=== PATIENT | male | born 1965 | race Two or more races ===

== ENCOUNTER 2024-01-13 08:37 | Inpatient (IN) | payer SELFPAY ==
[~2024-01-13] VITALS: Ht 167.6 cm; Wt 64.5 kg
[2024-01-13] MEDS: LORazepam 2MG/ML-1ML VIAL IV ONE ×2 (08:49→10:00)
[2024-01-13 09:32] LABS: Basophils # (auto) 0 10 ^3/uL (0-0.2); Basophils % (auto) 0.6 % (0.0-2.0); Eosinophils # (auto) 0.1 10 ^3/uL (0-0.8); Eosinophils % (auto) 1.8 % (0.0-7.0); Hematocrit 40.8 % (41.0-53.0); Hemoglobin 13.8 g/dL (13.5-17.5); Lymphocytes # (auto) 1.6 10 ^3/uL (0.4-5.4); Lymphocytes % (auto) 27.7 % (10.0-50.0); Mean Corpuscular Hemoglobin 31.7 pg (28.0-32.0); Mean Corpuscular Hgb Conc. 33.8 g/dL (32.0-36.0); Mean Corpuscular Volume 93.9 fL (80.0-100.0); Monocytes # (auto) 0.7 10 ^3/uL (0-1.3); Monocytes % (auto) 12.9 % (0.0-12.0); Neutrophils # (auto) 3.2 10 ^3/uL (1.6-8.6); Nucleated Red Blood Cells % 0.1 %; Platelet Count (auto) 125 10^3/uL (140-450); Red Blood Cells 4.34 10^6/uL (4.5-5.90); Red Cell Distribution Width 16.1 % (11.8-14.3); White Blood Cell 5.7 10^3/uL (4.4-10.8)
[2024-01-13 09:43] VITALS: PULSE 94; RESP 22; O2SAT 99
[2024-01-13] MEDS: levETIRAcetam 1000 mg/100ml 100 ML IV ONE (09:59)
[2024-01-13 10:07] LABS: Amphetamine Screen, Urine Neg (NEGATIVE)
[2024-01-13 10:08] LABS: Barbiturate Scree,Urine Neg (NEGATIVE); Benzodiazephine Screen, Urine Pos (NEGATIVE); Cannabinoid Screen, Urine Neg (NEGATIVE); Cocaine Screen, Urine Neg (NEGATIVE); Opiate Scree,Urine Neg (NEGATIVE); Phencyclidine Screen, Urine Neg (NEGATIVE)
[2024-01-13 10:10] LABS: Alanine Aminotransferase 17 U/L (7-40); Albumin 3.8 g/dL (3.2-4.8); Alkaline Phosphatase 125 U/L (46-116); Anion Gap 10 (5-15); Aspartate Aminotransferase 28 U/L (13-40); BUN/Creatinine Ratio 6.4 (10.0-20.0); Blood Urea Nitrogen 6 mg/dL (9-23); Calcium 9.4 mg/dL (8.7-10.4); Carbon Dioxide 20 mmol/L (20-31); Chloride 115 mmol/L (98-107); Glucose 117 mg/dL (74-106); Magnesium 2.1 mg/dL (1.6-2.6); Potassium 3.5 mmol/L (3.5-5.1); Sodium 145 mmol/L (136-145); Total Protein 6.9 g/dL (5.7-8.2)
[2024-01-13 10:16] LABS: Urine Amorphous Crystal FEW /hpf (None Seen); Urine Bacteria FEW /hpf (None Seen); Urine Blood Negative /uL (Negative); Urine Color Light-Yellow (Yellow); Urine Hyaline Cast FEW /lpf (0 - 2); Urine Protein, UAD TRACE (Negative); Urine Specific Gravity 1.011 (1.001-1.035); Urine Urobilinogen Normal (Negative); Urine WBC 1 /hpf (0 - 3); Urine pH 7.5 (5.0-9.0)
[2024-01-13 10:17] LABS: Urine Clarity Hazy (Clear)
[2024-01-13 18:21] VITALS: BP 125/74; PULSE 96; RESP 20; TEMP 100.2; O2SAT 96
[2024-01-13 20:00] VITALS: PULSE 90
[2024-01-13 20:30] VITALS: PULSE 99; RESP 20; O2SAT 96
[2024-01-13 22:00] VITALS: BP 123/72; PULSE 99; RESP 18; TEMP 101.4; O2SAT 94
[2024-01-13] MEDS: SODIUM CHLOR 0.9% PF (SALINE LOCK) 10ML VIAL/SYR IV SCH (23:11)
[2024-01-13] MEDS: levETIRAcetam 500 mg/100ml 100 ML IV SCH (23:11)
[2024-01-14] VITALS (7 sets, daily range): BP systolic 107–112; BP diastolic 52–63; PULSE 69–85; RESP 18–20; TEMP 98.9–101.2; O2SAT 97–98
[2024-01-14] MEDS: ACETAMINOPHEN 650 MG RECT SUPP PR PRN (05:40)
[2024-01-14 06:36] LABS: Basophils # (auto) 0 10 ^3/uL (0-0.2); Basophils % (auto) 0.4 % (0.0-2.0); Eosinophils # (auto) 0 10 ^3/uL (0-0.8); Hematocrit 36.7 % (41.0-53.0); Hemoglobin 12.7 g/dL (13.5-17.5); Lymphocytes % (auto) 27.8 % (10.0-50.0); Mean Corpuscular Hemoglobin 31.5 pg (28.0-32.0); Mean Corpuscular Hgb Conc. 34.7 g/dL (32.0-36.0); Mean Corpuscular Volume 90.9 fL (80.0-100.0); Monocytes # (auto) 0.7 10 ^3/uL (0-1.3); Monocytes % (auto) 10.3 % (0.0-12.0); Neutrophils # (auto) 4.4 10 ^3/uL (1.6-8.6); Neutrophils % (auto) 61.5 % (37.0-80.0); Nucleated Red Blood Cells % 0.1 %; Platelet Count (auto) 123 10^3/uL (140-450); Red Blood Cells 4.04 10^6/uL (4.5-5.90); Red Cell Distribution Width 15.5 % (11.8-14.3); White Blood Cell 7.1 10^3/uL (4.4-10.8)
[2024-01-14 06:54] LABS: Alanine Aminotransferase 12 U/L (7-40); Albumin 3.8 g/dL (3.2-4.8); Alkaline Phosphatase 112 U/L (46-116); Anion Gap 10 (5-15); Aspartate Aminotransferase 30 U/L (13-40); Bilirubin, Total 1.8 mg/dL (0.2-1.0); Blood Urea Nitrogen 12 mg/dL (9-23); Calcium 9.4 mg/dL (8.7-10.4); Carbon Dioxide 21 mmol/L (20-31); Chloride 112 mmol/L (98-107); Glucose 128 mg/dL (74-106); Potassium 3.5 mmol/L (3.5-5.1); Sodium 143 mmol/L (136-145); Total Protein 6.8 g/dL (5.7-8.2)
[2024-01-14] MEDS: LORazepam 2MG/ML-1ML VIAL IV PRN (08:22)
[2024-01-14] MEDS: ENOXAPARIN SOD 40 MG/0.4 ML SYRINGE SC SCH (09:27)
[2024-01-14] MEDS: FUROSEMIDE 40 MG/4 ML VIAL IV ONE (11:58)
[2024-01-14] MEDS ORDERED: HALOPERIDOL LACTATE 5 MG/ML INJ VIAL IV PRN (16:45)
[2024-01-14 21:01] LABS: COVID19 ANTIGEN SOFIA FIA NEGATIVE (NEGATIVE); Rapid Influenza A Negative (Negative); Rapid Influenza B Negative (Negative)
[2024-01-14] MEDS: FOLIC ACID 1 MG in D5W 5% 50 ML INJ ONE (22:30)
[2024-01-14] MEDS: THIAMINE 100mg/ml INJ (200mg/2ml VIAL) IM ONE (23:09)
[2024-01-14] MEDS: THIAMINE 100mg/ml INJ (200mg/2ml VIAL) IV ONE (23:10)
[2024-01-15] VITALS (9 sets, daily range): BP systolic 94–124; BP diastolic 54–73; PULSE 67–85; RESP 18–20; TEMP 97.9–99.1; O2SAT 95–98
[2024-01-15 07:24] LABS: Basophils # (auto) 0 10 ^3/uL (0-0.2); Basophils % (auto) 0.4 % (0.0-2.0); Eosinophils # (auto) 0.1 10 ^3/uL (0-0.8); Eosinophils % (auto) 1.3 % (0.0-7.0); Hematocrit 40.9 % (41.0-53.0); Hemoglobin 14.3 g/dL (13.5-17.5); Lymphocytes # (auto) 2.3 10 ^3/uL (0.4-5.4); Mean Corpuscular Hemoglobin 31.9 pg (28.0-32.0); Mean Corpuscular Hgb Conc. 35.1 g/dL (32.0-36.0); Mean Corpuscular Volume 91.1 fL (80.0-100.0); Monocytes # (auto) 0.9 10 ^3/uL (0-1.3); Monocytes % (auto) 9.2 % (0.0-12.0); Neutrophils # (auto) 6.1 10 ^3/uL (1.6-8.6); Neutrophils % (auto) 65.1 % (37.0-80.0); Nucleated Red Blood Cells % 0.1 %; Platelet Count (auto) 124 10^3/uL (140-450); Red Blood Cells 4.49 10^6/uL (4.5-5.90); Red Cell Distribution Width 15.7 % (11.8-14.3); White Blood Cell 9.4 10^3/uL (4.4-10.8)
[2024-01-15 07:37] LABS: Alanine Aminotransferase 17 U/L (7-40); Alkaline Phosphatase 120 U/L (46-116); Anion Gap 10 (5-15); BUN/Creatinine Ratio 21.6 (10.0-20.0); Calcium 10.1 mg/dL (8.7-10.4); Carbon Dioxide 23 mmol/L (20-31); Chloride 112 mmol/L (98-107); Glucose 113 mg/dL (74-106); Potassium 3.5 mmol/L (3.5-5.1); Sodium 145 mmol/L (136-145)
[2024-01-15 07:38] LABS: Albumin 4.2 g/dL (3.2-4.8); Aspartate Aminotransferase 33 U/L (13-40)
[2024-01-15 07:39] LABS: Bilirubin, Total 2.4 mg/dL (0.2-1.0); Total Protein 7.5 g/dL (5.7-8.2)
[2024-01-15 07:46] LABS: Blood Urea Nitrogen 25 mg/dL (9-23)
[2024-01-15] MEDS: FOLIC ACID 1 MG in D5W 5% 50 ML INJ SCH (10:00)
[2024-01-15] MEDS: THIAMINE 100mg/ml INJ (200mg/2ml VIAL) IV SCH (10:00)
[2024-01-15 10:44] LABS: INR 1.16 (0.9-1.15); Partial Thromboplastin Time 25.3 SEC (24.5-34.5); Prothrombin Time 12.2 sec (9.3-11.8)
[2024-01-15] MEDS: HYDROmorphone HCL 2 MG/ML VL/or syr IV PRN (13:12)
[2024-01-15] MEDS: LACTULOSE 20Gm/30ML SOLN PO SCH (14:00)
[2024-01-15 20:34] LABS: Basophils # (auto) 0 10 ^3/uL (0-0.2); Basophils % (auto) 0.5 % (0.0-2.0); Eosinophils # (auto) 0.2 10 ^3/uL (0-0.8); Hematocrit 38.3 % (41.0-53.0); Hemoglobin 13.2 g/dL (13.5-17.5); Lymphocytes # (auto) 2.5 10 ^3/uL (0.4-5.4); Lymphocytes % (auto) 33.2 % (10.0-50.0); Mean Corpuscular Hemoglobin 31.4 pg (28.0-32.0); Mean Corpuscular Hgb Conc. 34.4 g/dL (32.0-36.0); Mean Corpuscular Volume 91.4 fL (80.0-100.0); Monocytes # (auto) 0.9 10 ^3/uL (0-1.3); Monocytes % (auto) 11.8 % (0.0-12.0); Neutrophils # (auto) 3.8 10 ^3/uL (1.6-8.6); Neutrophils % (auto) 51.5 % (37.0-80.0); Nucleated Red Blood Cells % 0.1 %; Platelet Count (auto) 122 10^3/uL (140-450); Red Blood Cells 4.19 10^6/uL (4.5-5.90); Red Cell Distribution Width 15.7 % (11.8-14.3); White Blood Cell 7.4 10^3/uL (4.4-10.8)
[2024-01-16] VITALS (8 sets, daily range): BP systolic 108–130; BP diastolic 65–72; PULSE 67–87; RESP 16–18; TEMP 98.1–99; O2SAT 96–97
[2024-01-16 07:12] LABS: Basophils # (auto) 0 10 ^3/uL (0-0.2); Basophils % (auto) 0.6 % (0.0-2.0); Eosinophils # (auto) 0.2 10 ^3/uL (0-0.8); Eosinophils % (auto) 2.5 % (0.0-7.0); Hematocrit 40.5 % (41.0-53.0); Hemoglobin 13.9 g/dL (13.5-17.5); Lymphocytes # (auto) 2.6 10 ^3/uL (0.4-5.4); Lymphocytes % (auto) 40.9 % (10.0-50.0); Mean Corpuscular Hemoglobin 31.5 pg (28.0-32.0); Mean Corpuscular Hgb Conc. 34.4 g/dL (32.0-36.0); Mean Corpuscular Volume 91.3 fL (80.0-100.0); Monocytes # (auto) 0.9 10 ^3/uL (0-1.3); Monocytes % (auto) 13.2 % (0.0-12.0); Neutrophils # (auto) 2.8 10 ^3/uL (1.6-8.6); Neutrophils % (auto) 42.8 % (37.0-80.0); Nucleated Red Blood Cells % 0.1 %; Platelet Count (auto) 130 10^3/uL (140-450); Red Blood Cells 4.43 10^6/uL (4.5-5.90); Red Cell Distribution Width 15.6 % (11.8-14.3); White Blood Cell 6.5 10^3/uL (4.4-10.8)
[2024-01-16 07:40] LABS: Alanine Aminotransferase 13 U/L (7-40); Albumin 4.3 g/dL (3.2-4.8); Alkaline Phosphatase 111 U/L (46-116); Anion Gap 14 (5-15); Aspartate Aminotransferase 25 U/L (13-40); BUN/Creatinine Ratio 21.9 (10.0-20.0); Bilirubin, Total 1.6 mg/dL (0.2-1.0); Blood Urea Nitrogen 25 mg/dL (9-23); Calcium 9.8 mg/dL (8.7-10.4); Carbon Dioxide 22 mmol/L (20-31); Chloride 116 mmol/L (98-107); Glucose 105 mg/dL (74-106); Potassium 3.3 mmol/L (3.5-5.1); Total Protein 7.6 g/dL (5.7-8.2)
[2024-01-16 07:42] LABS: Sodium 152 mmol/L (136-145)
[2024-01-16] MEDS: NYSTATIN (MOUTH-THROAT) 500,000 UNITS/5 ML SUSP MT SCH (11:42)
[2024-01-16] MEDS: SODIUM CHLORIDE 0.9% 1,000 ML IV ONE (12:15)
[2024-01-16] MEDS: NEOMYCIN-POLYM-HC 1% OTIC(EAR) SOLN 10ML EACH EAR ONE (12:54)
[2024-01-16] MEDS: POTASSIUM CHL 20MEQ/100ML 100 ML IV ONE (12:54)
[2024-01-16] MEDS: D5W/SOD CHL 0.45% 1,000 ML IV SCH (17:44)
[2024-01-16] MEDS: NEOMYCIN-POLYM-HC 1% OTIC(EAR) SOLN 10ML EACH EAR SCH (17:45)
[2024-01-17] VITALS (7 sets, daily range): BP systolic 105–122; BP diastolic 63–74; PULSE 49–77; RESP 16–20; TEMP 98–98.5; O2SAT 94–100
[2024-01-17 07:17] LABS: Basophils # (auto) 0 10 ^3/uL (0-0.2); Basophils % (auto) 0.7 % (0.0-2.0); Eosinophils # (auto) 0.3 10 ^3/uL (0-0.8); Eosinophils % (auto) 4.2 % (0.0-7.0); Hematocrit 37.2 % (41.0-53.0); Hemoglobin 12.7 g/dL (13.5-17.5); Lymphocytes # (auto) 2.9 10 ^3/uL (0.4-5.4); Lymphocytes % (auto) 42.3 % (10.0-50.0); Mean Corpuscular Hemoglobin 31.1 pg (28.0-32.0); Mean Corpuscular Hgb Conc. 34.1 g/dL (32.0-36.0); Mean Corpuscular Volume 91.2 fL (80.0-100.0); Monocytes # (auto) 0.9 10 ^3/uL (0-1.3); Monocytes % (auto) 13.9 % (0.0-12.0); Neutrophils # (auto) 2.7 10 ^3/uL (1.6-8.6); Neutrophils % (auto) 38.9 % (37.0-80.0); Nucleated Red Blood Cells % 0.3 %; Platelet Count (auto) 118 10^3/uL (140-450); Red Blood Cells 4.08 10^6/uL (4.5-5.90); Red Cell Distribution Width 15.5 % (11.8-14.3); White Blood Cell 6.8 10^3/uL (4.4-10.8)
[2024-01-17 07:33] LABS: Alanine Aminotransferase 18 U/L (7-40); Albumin 3.8 g/dL (3.2-4.8); Alkaline Phosphatase 109 U/L (46-116); Anion Gap 12 (5-15); Aspartate Aminotransferase 40 U/L (13-40); Bilirubin, Total 1.9 mg/dL (0.2-1.0); Blood Urea Nitrogen 26 mg/dL (9-23); Calcium 9.3 mg/dL (8.7-10.4); Carbon Dioxide 22 mmol/L (20-31); Chloride 113 mmol/L (98-107); Glucose 87 mg/dL (74-106); Potassium 3.2 mmol/L (3.5-5.1); Sodium 147 mmol/L (136-145); Total Protein 6.8 g/dL (5.7-8.2)
[2024-01-17 08:06] LABS: RPR Non Reactive (Non Reactive)
[2024-01-17] MEDS: POTASSIUM EFFERVESENT TAB 25 MEQ PO ONE (10:43)
[2024-01-17] MEDS: ONDANSETRON HCL 4 MG/2 ML VIAL IV PRN (17:12)
[2024-01-17] MEDS: AMOXICILLIN/CLAVUL 875 MG TAB PO SCH (22:04)
[2024-01-18] VITALS (8 sets, daily range): BP systolic 95–110; BP diastolic 52–63; PULSE 67–85; RESP 16–20; TEMP 98.5–99.2; O2SAT 92–99
[2024-01-18 09:33] LABS: Basophils # (auto) 0 10 ^3/uL (0-0.2); Basophils % (auto) 0.3 % (0.0-2.0); Eosinophils # (auto) 0.2 10 ^3/uL (0-0.8); Hematocrit 35.5 % (41.0-53.0); Lymphocytes % (auto) 20.2 % (10.0-50.0); Mean Corpuscular Hemoglobin 31.1 pg (28.0-32.0); Mean Corpuscular Hgb Conc. 33.7 g/dL (32.0-36.0); Mean Corpuscular Volume 92.1 fL (80.0-100.0); Monocytes # (auto) 0.5 10 ^3/uL (0-1.3); Neutrophils # (auto) 3.4 10 ^3/uL (1.6-8.6); Neutrophils % (auto) 65.5 % (37.0-80.0); Nucleated Red Blood Cells % 0.1 %; Platelet Count (auto) 106 10^3/uL (140-450); Red Blood Cells 3.85 10^6/uL (4.5-5.90); Red Cell Distribution Width 15.3 % (11.8-14.3); White Blood Cell 5.2 10^3/uL (4.4-10.8)
[2024-01-18 09:55] LABS: Alanine Aminotransferase 11 U/L (7-40); Alkaline Phosphatase 91 U/L (46-116); Anion Gap 8 (5-15); BUN/Creatinine Ratio 16.7 (10.0-20.0); Blood Urea Nitrogen 15 mg/dL (9-23); Calcium 8.6 mg/dL (8.7-10.4); Carbon Dioxide 23 mmol/L (20-31); Chloride 112 mmol/L (98-107); Glucose 111 mg/dL (74-106); Potassium 3.4 mmol/L (3.5-5.1); Sodium 143 mmol/L (136-145)
[2024-01-18 09:56] LABS: Albumin 3.3 g/dL (3.2-4.8); Aspartate Aminotransferase 24 U/L (13-40); Total Protein 5.9 g/dL (5.7-8.2)
[2024-01-18] MEDS: POTASSIUM EFFERVESENT TAB 25 MEQ PO ONE (14:21)
[2024-01-18 20:27] LABS: Calcium 9.4 mg/dL (8.7-10.4); Chloride 110 mmol/L (98-107); Potassium 4.2 mmol/L (3.5-5.1); Sodium 139 mmol/L (136-145)
[2024-01-18 20:28] LABS: Anion Gap 8 (5-15); Carbon Dioxide 21 mmol/L (20-31)
[2024-01-18 20:33] LABS: BUN/Creatinine Ratio 11.7 (10.0-20.0); Blood Urea Nitrogen 11 mg/dL (9-23); Glucose 115 mg/dL (74-106)
[2024-01-19 01:00] VITALS: BP 92/46; PULSE 63; RESP 16; TEMP 98.1; O2SAT 97
[2024-01-19 05:00] VITALS: BP 115/63; PULSE 63; RESP 16; TEMP 97.6; O2SAT 97
[2024-01-19 09:00] VITALS: BP 102/58; PULSE 66; RESP 14; TEMP 97.4; O2SAT 99
[2024-01-19 09:06] LABS: Vitamin D 25-Hydroxy 29 ng/mL (.); Vitamin D-2 25-Hydroxy <1.0 ng/mL (.); Vitamin D-3 25-Hydroxy 29 ng/mL (.)
[2024-01-19 13:36] VITALS: BP 102/60; PULSE 66; RESP 18; TEMP 98; O2SAT 100
[2024-01-19 16:51] VITALS: BP 119/64; PULSE 69; RESP 18; TEMP 97.9; O2SAT 99
[2024-01-19 21:00] VITALS: BP 92/48; PULSE 65; RESP 18; TEMP 97.6; O2SAT 94
[2024-01-20 01:00] VITALS: BP 100/53; PULSE 73; RESP 17; TEMP 97.7; O2SAT 98
[2024-01-20 05:00] VITALS: BP 116/60; PULSE 64; RESP 17; TEMP 98.5; O2SAT 96
[2024-01-20 09:00] VITALS: BP 110/64; PULSE 76; RESP 14; TEMP 97.9; O2SAT 98
[2024-01-20 10:20] LABS: Chloride 114 mmol/L (98-107); Sodium 144 mmol/L (136-145)
[2024-01-20 10:21] LABS: Anion Gap 8 (5-15); Calcium 9.1 mg/dL (8.7-10.4); Carbon Dioxide 22 mmol/L (20-31)
[2024-01-20 10:26] LABS: BUN/Creatinine Ratio 9.4 (10.0-20.0); Blood Urea Nitrogen 9 mg/dL (9-23); Glucose 177 mg/dL (74-106)
[2024-01-20 13:00] VITALS: BP 103/61; PULSE 64; RESP 20; TEMP 98.1; O2SAT 99
[2024-01-20] MEDS ORDERED: COROSUS EACH EAR (13:48)
[2024-01-20] MEDS ORDERED: AUG875T PO (13:48)
[2024-01-20 15:02] VITALS: BP 111/52; TEMP 36.7
[2024-01-20 16:31] VITALS: BP 130/73; PULSE 85; RESP 16; TEMP 98.4; O2SAT 97
[2024-01-26 09:46] LABS: Hepatitis B Surface Antigen Negative (Negative)
[2024-01-26 10:07] LABS: Hepatitis B Core IgM Negative
[2024-01-26 10:08] LABS: Hepatitis A Ab IgM Negative; Hepatitis C Antibody Negative (Negative)
== END 2024-01-20 20:40 | DRG 101 ==
LOC: EDBD 08:37 → ER 08:37 → TELE 15:27 → EDBD 15:27 → TELE-WESTW 18:12 → WEST WING 01-16 12:33
PROVIDERS: ADMIT Internal Medicine; ATTEND Internal Medicine
DX: G40.901 Epilepsy, unspecified, not intractable, with status epilepticus (principal); B37.0 Candidal stomatitis; E87.0 Hyperosmolality and hypernatremia; E72.20 Disorder of urea cycle metabolism, unspecified; N39.0 Urinary tract infection, site not specified; Z20.822 Contact with and (suspected) exposure to COVID-19; G83.84 Todd's paralysis (postepileptic); D69.6 Thrombocytopenia, unspecified; M47.812 Spondylosis without myelopathy or radiculopathy, cervical region; H60.93 Unspecified otitis externa, bilateral; H70.92 Unspecified mastoiditis, left ear; K76.82 Hepatic encephalopathy; F04 Amnestic disorder due to known physiological condition; E87.6 Hypokalemia; K74.60 Unspecified cirrhosis of liver; F10.20 Alcohol dependence, uncomplicated; Y90.9 Presence of alcohol in blood, level not specified; Z79.899 Other long term (current) drug therapy
CPT/HCPCS: 36415; 36600; 70450; 71045; 72125; 76705; 76775; 80048; 80053; 80074; 80307; 80320; 81001; 82140; 82306; 82607; 82805; 83036; 83735; 84295; 84443; 84484; 85025; 85610; 85730; 86592; 86703; 87426; 87804; 92610; 93005; 93306; 93971; 95819; 97110; 97116; 97163; 97530; 99291; G0378; J2405; J3480; J7060

== ENCOUNTER 2024-03-14 17:20 | Emergency (ER) | payer OTHER ==
[~2024-03-14] VITALS: Ht 167.6 cm; Wt 67.8 kg
[~2024-03-14 17:20] MED LIST: AUG875T PO; COROSUS EACH EAR
[2024-03-14 18:19] VITALS: BP 124/72; PULSE 84; RESP 16; TEMP 98.2; O2SAT 98
== END 2024-03-14 19:14 | disposition left against medical advice (07) ==
LOC: ER 17:20
DX: H92.02 Otalgia, left ear (principal); R20.2 Paresthesia of skin; Z53.21 Procedure and treatment not carried out due to patient leaving prior to being seen by health care provider

== ENCOUNTER 2024-03-15 02:38 | Emergency (ER) | payer SELFPAY ==
[~2024-03-15] VITALS: Ht 162.6 cm; Wt 65.0 kg
[2024-03-15 03:22] LABS: Basophils # (auto) 0.1 10 ^3/uL (0-0.2); Eosinophils # (auto) 0.3 10 ^3/uL (0-0.8); Eosinophils % (auto) 3.5 % (0.0-7.0); Hematocrit 35.6 % (41.0-53.0); Hemoglobin 11.7 g/dL (13.5-17.5); Lymphocytes # (auto) 3.4 10 ^3/uL (0.4-5.4); Lymphocytes % (auto) 43.5 % (10.0-50.0); Mean Corpuscular Hemoglobin 28.1 pg (28.0-32.0); Mean Corpuscular Hgb Conc. 32.8 g/dL (32.0-36.0); Mean Corpuscular Volume 85.8 fL (80.0-100.0); Monocytes # (auto) 1.1 10 ^3/uL (0-1.3); Monocytes % (auto) 13.4 % (0.0-12.0); Neutrophils # (auto) 3.1 10 ^3/uL (1.6-8.6); Neutrophils % (auto) 38.6 % (37.0-80.0); Nucleated Red Blood Cells % 0.1 %; Platelet Count (auto) 185 10^3/uL (140-450); Red Blood Cells 4.15 10^6/uL (4.5-5.90); Red Cell Distribution Width 15.8 % (11.8-14.3); White Blood Cell 7.9 10^3/uL (4.4-10.8)
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
[2024-03-15 03:39] LABS: Alanine Aminotransferase 11 U/L (7-40); Albumin 4.2 g/dL (3.2-4.8); Anion Gap 6 (5-15); Aspartate Aminotransferase 20 U/L (13-40); Blood Urea Nitrogen 10 mg/dL (9-23); Carbon Dioxide 26 mmol/L (20-31); Potassium 3.7 mmol/L (3.5-5.1); Sodium 142 mmol/L (136-145)
[2024-03-15 03:40] LABS: Total Protein 7.5 g/dL (5.7-8.2)
[2024-03-15 03:49] LABS: Chloride 110 mmol/L (98-107); Glucose 115 mg/dL (74-106)
[2024-03-15 03:50] LABS: Alkaline Phosphatase 124 U/L (46-116); Blood Alcohol < 3.0 mg/dL (<10)
--- NOTE | 2024-03-15 04:07 | DVH ---
Examination: HWOCT CLINICAL INDICATION: head injury / ALOC COMPARISON: None. CONTRAST USED: None. TECHNIQUE: The examination was performed obtaining 5 mm slices without contrast. CT scan was done acc ording to ALARA (As Low as Reasonably Achievable). Multiplanar reconstructions were obtained. FINDINGS: SUPRATENTORIAL BRAIN: Cerebral Hemispheres: There is no midline shift or mass effect, intra or extra-axial fluid collection s or hemorrhage. Prominent sulcal-gyral pattern and cisternal spaces in both cerebral hemispheres sug gestive of cerebral atrophy, likely age-related. Dural calcifications noted. Periventricular White Matter/Basal Ganglia: No abnormal areas of altered attenuation within the periv entricular white matter or basal ganglia. POSTERIOR FOSSA: The brainstem is normal and the visualized cerebellar hemispheres are unremarkable. VENTRICULAR SYSTEM: Slightly asymmetrical both lateral ventricles with the right one being prominent, a normal variation. There is no evidence of hydrocephalus or transependymal flow of cerebrospinal fl uid. SKULL BASE AND PARASELLAR REGION: The skull base is normal with no parasellar masses or abnormalities identified. CALVARIUM AND SCALP REGION: Questionable fracture of nasal bone on the right side. Advised further ev aluation with CT face / nasal bone without contrast with thin sections bone reformats. Hypo to isoden se material noted in left mastoid air cells and left middle ear cavity, suggestive of otomastoiditis. PARANASAL SINUSES: No significant inflammatory changes are identified in the visualized paranasal sin uses. IMPRESSION: 1. No obvious intracranial injury or skull vault fracture. 2. Questionable fracture of nasal bone on the right side. Advised further evaluation with CT face / nasal bone without contrast with thin sections bone reformats. 3. Cerebral and cerebellar atrophy, likely age-related. 4. Chronic and/or ancillary findings as described above. Electronically Signed 03/15/2024 04:06 Ilsa Elder
[2024-03-15 04:52] VITALS: BP 121/71; PULSE 80; RESP 18; TEMP 98.6; O2SAT 98
== END 2024-03-15 04:52 | disposition home or self-care (01) ==
LOC: ER 02:38
DX: S00.03XA Contusion of scalp, initial encounter (principal); Y04.2XXA Assault by strike against or bumped into by another person, initial encounter; Y93.89 Activity, other specified; Y92.89 Other specified places as the place of occurrence of the external cause; Y99.8 Other external cause status
CPT/HCPCS: 36415; 70450; 80053; 80320; 83735; 85025

== ENCOUNTER 2024-03-19 17:03 | Emergency (ER) | payer SELFPAY ==
[~2024-03-19] VITALS: Ht 160 cm; Wt 69.0 kg
[2024-03-19 19:00] VITALS: BP 132/72; PULSE 72; RESP 20; TEMP 98.5; O2SAT 96
[2024-03-19] MEDS ORDERED: ACET500T58 PO (20:08)
[2024-03-19] MEDS ORDERED: AMOX875T4 PO (20:08)
[2024-03-19] MEDS ORDERED: CIPR1SUS8 LEFT EAR (20:08)
--- NOTE | 2024-03-19 20:08 | ED.PDOC ---
Eye-HPI HPI Comments 59-YEAR-OLD MALE PRESENTS TO ER WITH COMPLAINTS OF LEFT EARACHE X2 DAYS. PATIENT REPORTS HE HAS BEEN EXPERIENCING LEFT-SIDED EARACHE AND SORE THROAT PAIN X2 DAYS. HE RATES HIS CURRENT PAIN A 7/10 TO LEFT EAR AND THROAT, DENYING ANY OTHER PAIN. DENIES USE OF MEDICATIONS FOR CURRENT SYMPTOMS. PATIENT PRESENTS TO ER AMBULATORY ON ARRIVAL, WITH STEADY GAIT, IN NO DISTRESS. DENIES HEADACHE, EAR DRAINAGE, NAUSEA/VOMITING, DIZZINESS, DIFFICULTY SWALLOWING, SHORTNESS OF BREATH OR ANY FURTHER SYMPTOMS/COMPLAINTS Chief Complaint: Sore Throat Time Seen by MD: 18:09 Primary Care Provider: YASIR Reviewed Notes: Nurses Notes, Medications, Allergies Allergies: Coded Allergies: NO KNOWN ALLERGIES (Unverified , 03/19/24) Home Meds Active Scripts Ciprofloxacin-Dexamethasone (Ciprofloxacin/Dexamethaso 0.3-0.1 %) 1 Stacie Stacie, 4 DROP LEFT EAR BID for 7 Days, #1 BOTTLE 0 Refills Prov:JAMSHID SILVA 03/19/24 Amoxicillin & Pot Clavulanate (Amoxicillin/Potassium Cla) 875 Mg Tab, 1 TAB PO BID for 7 Days, #14 TAB 0 Refills Prov:JAMSHID SILVA 03/19/24 Acetaminophen (Acetaminophen) 500 Mg Tab, 500 MG PO Q4HPRN, #30 TAB 0 Refills Prov:JAMSHID SILVA 03/19/24 Amoxicillin & Pot Clavulanate (AUGMENTIN TABLET) 875 Mg Tb, 875 MG PO BID for 3 Days, #6 TAB Prov:DESIREE PEREZ RESIDENT 01/20/24 [id number]-[id number]-Iz (Otic) (Cortisporin Otic Susp) [address], 4 DROP EACH EAR TID for 5 Days, #10 ML Prov:DESIREE PEREZ RESIDENT 01/20/24 Information Source: Patient Mode of Arrival: Ambulatory Past Medical History PAST MEDICAL HISTORY: Seizures Surgical History: Unknown Family History Family History: Unknown Social History Smoker: Non-Smoker Alcohol: Denies ETOH Use Drugs: Denies Drug Use Lives In: Home Constitutional: denies: chills, diaphoresis, fatigue, fever, malaise, sweats, weakness, others EENTM: reports: others (As stated in HPI) Respiratory: denies: cough, hemoptysis, orthopnea, SOB at rest, shortness of breath, SOB with excertion, stridor, wheezing, others Cardiovascular: denies: chest pain, dizzy spells, diaphoresis, Dyspnea on exertion, edema, irregular heart beat, left arm pain, lightheadedness, palpitations, PND, syncope, others Gastrointestinal: denies: abdomen distended, abdominal pain, blood streaked bowels, constipated, diarrhea, dysphagia, difficulty swallowing, hematemesis, melena, nausea, poor appetite, poor fluid intake, rectal bleeding, rectal pain, vomiting, others Genitourinary: denies: burning, dysuria, flank pain, frequency, hematuria, incontinence, penile discharge, penile sore, pain, testicle pain, testicle swelling, urgency, others Neurological: denies: dizziness, fainting, headache, left sided numbness, left sided weakness, numbness, paresthesia, pre-existing deficit, right sided numbness, right sided weakness, seizure, speech problems, tingling, tremors, weakness, others Musculoskeletal: denies: back pain, gout, joint pain, joint swelling, muscle pain, muscle stiffness, neck pain, others Integumetry: denies: bruises, change in color, change in hair/nails, dryness, laceration, lesions, lumps, rash, wounds, others Allergic/Immunocompromised: denies: Difficulty Healing, Frequent Infections, Hives, Itching, others Hematologic/Lymphatic: denies: anemia, blood clots, easy bleeding, easy bruising, swollen glands, others Endocrine: denies: excessive hunger, excessive sweating, excessive thirst, excessive urination, flushing, intolerance to cold, intolerance to heat, une xplained weight gain, unexplained weight loss, others Psychiatric: denies: anxiety, bipolar disorder, depression, hopeless, panic disorder, schizophrenia, sleepless, suicidal, others Physical Exam General Appearance: No Apparent Distress HEENT: PERRL/EOMI, Pharynx Normal, Other (Mild erythema and minimal yellow drainage noted to left middle ear canal, unable to visualize left TM due to purulent drainage. No skin changes to left ear appreciated, no TTP to left mastoid process or left tragus noted. Ear exam on right-normal) Neck: Full Range of Motion, Non-Tender, Normal Respiratory: Chest Non-Tender, Lungs Clear, No Accessory Muscle Use, No Respiratory Distress, Normal Breath Sounds Cardiovascular: No Murmur, No Gallop, Regular Rate/Rhythm Breast Exam: Deferred Gastrointestinal: NOT DONE Genitalia: Deferred Pelvic: Deferred Rectal: Deferred Extremities: Normal capillary refill, Normal range of motion Neurologic: Alert, supervisor firearms II-XII nml as Tested, No Motor Deficits, Normal Affect, Normal Mood, No Sensory Deficits Cerebellar Function: Normal Reflexes: Normal Skin: Dry, Normal Color, Warm Lymphatic: No Adenopathy Was a procedure done? Was a procedure done?: No Sedation Sedation?: No EENT DIFF Eye: N/A Ear: Cerumen Impaction, Otitis Media, Perforation, Pharyngitis X-Ray, Labs, Meds, VS Vital Signs Date Time Temp Pulse Resp B/P (MAP) Pulse Ox O2 Delivery O2 Flow Rate FiO2 03/19/24 19:00 72 20 96 Room Air 03/19/24 19:00 98.5 72 20 132/72 (92) 96 98.5 03/19/24 17:18 98.5 72 20 132/72 (92) 96 Advised to keep ear canal dry Advised to follow up with PCP in 1-2 days Patient verbalized understanding and agreeable with current plan of care Advised to return to ER immediately if symptoms worsen Time of 1ST Reevaluation: 19:44 Reevaluation 1ST: N/A Patient Education/Counseling: Diagnosis, Treatment, Prognosis, Need For Follow Up Family Education/Counseling: No Family Present Departure 1 Departure Time of Disposition: 20:02 Impression: Primary Impression: Otitis externa, left Qualified Codes: H60.502 - Unspecified acute noninfective otitis externa, left ear Disposition: HOME / SELF CARE / HOMELESS Condition: Stable e-Prescriptions Ciprofloxacin-Dexamethasone (Ciprofloxacin/Dexamethaso 0.3-0.1 %) 1 Stacie Stacie 4 DROP LEFT EAR BID for 7 Days, #1 BOTTLE 0 Refills Prov: JAMSHID SILVA 03/19/24 Amoxicillin & Pot Clavulanate (Amoxicillin/Potassium Cla) 875 Mg Tab 1 TAB PO BID for 7 Days, #14 TAB 0 Refills Prov: JAMSHID SILVA 03/19/24 Acetaminophen (Acetaminophen) 500 Mg Tab 500 MG PO Q4HPRN, #30 TAB 0 Refills Prov: JAMSHID SILVA 03/19/24 Discharged With: Friend Critical Care Note Critical Care Time?: No Stability Stability form required: No Heart Score Heart Score: Heart Score Response (Comments) Value History N/A 0 EKG N/A 0 Age N/A 0 Risk Factors N/A 0 Troponin N/A 0 Total 0 JAMSHID SILVA Mar 19, 2024 20:08
== END 2024-03-19 20:29 | disposition home or self-care (01) ==
LOC: ER 17:08
DX: H60.8X2 Other otitis externa, left ear (principal); Z79.899 Other long term (current) drug therapy

== ENCOUNTER 2024-07-22 18:32 | Inpatient (IN) | payer MEDICAID, OTHER ==
[~2024-07-22] VITALS: Ht 165.1 cm; Wt 69.5 kg
[~2024-07-22 18:32] MED LIST changes: +ACET500T58 PO; +AMOX875T4 PO; +CIPR1SUS8 LEFT EAR
--- NOTE | 2024-07-22 19:11 | ED.PDOC ---
History of Present Illness HPI Comments 59 y/o M presents with multiple complaints, including head, chest, abdominal, back, and left-foot pain. Patient is a [place] speaker and poor historian. He reports on developing symptoms after sustaining a fall he had "months" ago. He is oriented to self only. Unable to recall year or city he is, currently, located in alongside nature of said fall. Chief Complaint: Back Pain Time Seen by MD: 18:45 Primary Care Provider: RENEEO Reviewed Notes: Nurses Notes, Medications, Allergies Allergies: Coded Allergies: NO KNOWN ALLERGIES (Unverified , 03/19/24) Home Meds Active Scripts Ciprofloxacin-Dexamethasone (Ciprofloxacin/Dexamethaso 0.3-0.1 %) 1 Stacie Stacie, 4 DROP LEFT EAR BID for 7 Days, #1 BOTTLE 0 Refills Prov:JAMSHID SILVA 03/19/24 Amoxicillin & Pot Clavulanate (Amoxicillin/Potassium Cla) 875 Mg Tab, 1 TAB PO BID for 7 Days, #14 TAB 0 Refills Prov:JAMSHID SILVA 03/19/24 Acetaminophen (Acetaminophen) 500 Mg Tab, 500 MG PO Q4HPRN, #30 TAB 0 Refills Prov:JAMSHID SILVA 03/19/24 Amoxicillin & Pot Clavulanate (AUGMENTIN TABLET) 875 Mg Tb, 875 MG PO BID for 3 Days, #6 TAB Prov:DESIREE PEREZ RESIDENT 01/20/24 Xuxjqedt-Atgsddhzo-Xj (Otic) (Cortisporin Otic Susp) [address], 4 DROP EACH EAR TID for 5 Days, #10 ML Prov:DESIREE PEREZ RESIDENT 01/20/24 Information Source: Patient Mode of Arrival: Ambulatory Past Medical History PAST MEDICAL HISTORY: Seizures, UTI'S Past Medical History (Other): Pulmonary edema/ pulmonary vascular congestion Left cervical spine degenerative joint disease Thrombocytopenia Surgical History: Unknown Family History Family History: Unknown Social History Smoker: Non-Smoker Alcohol: Heavy Drugs: Denies Drug Use Lives In: Home All Other Systems: Reviewed and Negative (as per HPI) Physical Exam Exam Comments General Appearance: No Apparent Distress, Normal HEENT: Normal ENT Inspection, Pharynx Normal, TMs Normal Neck: Full Range of Motion, Non-Tender, Normal, Normal Inspection Respiratory: Chest Non-Tender, Lungs Clear, No Accessory Muscle Use, No Respiratory Distress, Normal Breath Sounds Cardiovascular: No Edema, No JVD, No Murmur, No Gallop, Normal Peripheral Pulses, Regular Rate/Rhythm Breast Exam: Deferred Gastrointestinal: No Organomegaly, Non Tender, No Pulsatile Mass, Normal Bowel Sounds, Soft Genitalia: Deferred Pelvic: Deferred Rectal: Deferred Extremities: No calf tenderness, Normal capillary refill, Normal inspection, Normal range of motion, Non-tender, No pedal edema Musculoskeletal : Extremity Location: Back Apperance: Normal, Tenderness: Mild (mild tenderness to thoracic paraspinal muscles) Neurologic: Alert, drop wire aligner II-XII nml as Tested, No Motor Deficits, No Sensory Deficits, Other (oriented to self only ) Cerebellar Function: Normal Reflexes: Normal Skin: Dry, Normal Color, Warm Lymphatic: No Adenopathy Was a procedure done? Was a procedure done?: No Differential Dx Considerations may include: closed head injury, encephalopathy, viral syndrome, UTI, contusions, bruising, dislocations, fractures, illicit substance use, among others X-Ray, Labs, Meds, VS Vital Signs Date Time Temp Pulse Resp B/P (MAP) Pulse Ox O2 Delivery O2 Flow Rate FiO2 07/22/24 18:37 97.8 84 15 151/81 (104) 98 97.8 Lab Test 07/22/24 19:04 Range/Units White Blood Count 4.6 4.4-10.8 10^3/uL Red Blood Count 4.56 4.5-5.90 10^6/uL Hemoglobin 11.8 L 13.5-17.5 g/dL Hematocrit 38.6 L 41.0-53.0 % Mean Corpuscular Volume 84.8 80.0-100.0 fL Mean Corpuscular Hemoglobin 26.0 L 28.0-32.0 pg Mean Corpuscular Hemoglobin Concent 30.6 L 32.0-36.0 g/dL Red Cell Distribution Width 18.6 H 11.8-14.3 % Platelet Count 137 L 140-450 10^3/uL Mean Platelet Volume 8.0 6.9-10.8 fL Neutrophils (%) (Auto) 64.2 37.0-80.0 % Lymphocytes (%) (Auto) 24.2 10.0-50.0 % Monocytes (%) (Auto) 10.2 0.0-12.0 % Eosinophils (%) (Auto) 0.6 0.0-7.0 % Basophils (%) (Auto) 0.8 0.0-2.0 % Neutrophils # (Auto) 2.9 1.6-8.6 10 ^3/uL Lymphocytes # (Auto) 1.1 0.4-5.4 10 ^3/uL Monocytes # (Auto) 0.5 0-1.3 10 ^3/uL Eosinophils # (Auto) 0 0-0.8 10 ^3/uL Basophils # (Auto) 0 0-0.2 10 ^3/uL Nucleated Red Blood Cells 0.1 % Sodium Level 138 136-145 mmol/L Potassium Level 3.5 3.5-5.1 mmol/L Chloride Level 105 98-107 mmol/L Carbon Dioxide Level 22 20-31 mmol/L Anion Gap 11 5-15 Blood Urea Nitrogen 10 9-23 mg/dL Creatinine 0.86 0.700-1.30 mg/dL Glomerular Filtration Rate Calc 99 >90 mL/min BUN/Creatinine Ratio 11.6 10.0-20.0 Serum Glucose 89 74-106 mg/dL Lactic Acid Level 1.8 0.4-2.0 mmol/L Calcium Level 9.4 8.7-10.4 mg/dL Magnesium Level 1.7 1.6-2.6 mg/dL Total Bilirubin 1.1 H 0.2-1.0 mg/dL Aspartate Amino Transferase (AST) 21 13-40 U/L Alanine Aminotransferase (ALT) 15 7-40 U/L Alkaline Phosphatase 126 H 46-116 U/L Ammonia 29 11-32 umol/L Total Protein 7.3 5.7-8.2 g/dL Albumin 4.3 3.2-4.8 g/dL Salicylates Level < 3.0 -30 mg/dL Acetaminophen Level < 2.0 L 10.0-20.0 UG/ML Plasma/Serum Blood Alcohol < 3.0 <10 mg/dL [address] [address] Ph: [phone] DIAGNOSTIC IMAGING Diagnostic Imaging Report : [id number] Signed PATIENT: DARRIUS GARDUNO ACCT: [id number] UNIT: [id number] : 1965 LOC: ER ROOM / BED: / AGE / SEX: 59 / M ADM STATUS: REG ER SERVICE 49 ORDERING PHYSICIAN: JAREN BACON MD PROCEDURE(s): HWOCT - HEAD WITHOUT CONTRAST REASON: ALOC ORDER NUMBER(s): [id number], ACCESSION NUMBER(s): [id number] CT BRAIN WITHOUT CONTRAST HISTORY: ALOC TECHNIQUE: Axial scans were obtained from the skull base through the vertex without contrast. Sagittal and coronal reformats were generated. One or more of the following radiation dose reduction techniques were used for this examination: automated exposure control, adjustment of the mA and/or kV according to patient size, use of iterative reconstruction technique. COMPARISON: CT HEAD WITHOUT CONTRAST on DOS: 03/15/24 FINDINGS: Mild generalized cerebral and cerebellar atrophy again noted. No acute intracranial hemorrhage or evidence of large vessel territorial infarction identified at this time. No midline shift. The basilar cisterns are patent. Small amount of layering fluid versus cyst in the posterior left maxillary sinus. Chronic appearing opacification of the left inner ear and left mastoid air cells. No grossly displaced calvarial abnormalities identified. IMPRESSION: No acute intracranial findings. A few other chronic appearing Findings as above. ATED BY: ALFA LOPEZ MD DICTATED DATE/TIME: 07/22/241951 SIGNED BY: ALFA LOPZE MD SIGNED DATE/TIME: 07/22/241951 CC: [place] [address] Ph: [phone] DIAGNOSTIC IMAGING Diagnostic Imaging Report : [id number] Signed PATIENT: DARRIUS GARDUNO ACCT: [id number] UNIT: [id number] : 1965 LOC: ER ROOM / BED: / AGE / SEX: 59 / M ADM STATUS: REG ER SERVICE 49 ORDERING PHYSICIAN: JAREN BACON MD PROCEDURE(s): CXRP - CHEST PORTABLE REASON: upper back pain ORDER NUMBER(s): [id number], ACCESSION NUMBER(s): [id number] EXAM: XY CHEST PORTABLE TECHNIQUE: Single frontal chest radiograph CLINICAL HISTORY: upper back pain COMPARISON: XY CHEST PORTABLE on DOS: 01/13/24 Findings/Impression: Frontal chest radiograph demonstrates no acute osseous or superficial soft tissue abnormalities. The trachea is midline. The cardiac silhouette and mediastinum are within normal limits. No pneumothorax, pleural effusions, or consolidations. ATED BY: SOUMYA NOLAN DO DICTATED DATE/TIME: 07/22/241944 SIGNED BY: SOUMYA NOLAN DO SIGNED DATE/TIME: 07/22/241944 CC: Time of 1ST Reevaluation: 19:15 Reevaluation 1ST: Unchanged Patient Education/Counseling: Diagnosis, Treatment Family Education/Counseling: No Family Present Departure 1 Departure Time of Disposition: 20:29 Impression: Primary Impression: Acute encephalopathy Additional Impression: Lumbar radiculopathy Disposition: ADMITTED INPATIENT Condition: Guarded Discharged With: Self Comments Back Pain and Acute Encephalopathy Chief Complaint: Back pain and confusion History of Present Illness: 59-year-old male with a history of seizure disorder and chronic back pain presents with worsening upper lumbar back pain for the past week. Additionally, patient reports a dull headache. Of significant concern, the patient demonstrates acute confusion with impaired orientation, being only oriented to self and unable to identify current year or city. Review of Systems: Constitutional: Presents with confusion Neurological: Altered mental status, headache Musculoskeletal: Upper lumbar back pain All other systems reviewed and negative Medications: Not documented in emt i/99 Allergies: Not documented in emt i/99 Past Medical History: Seizure disorder Chronic back pain Physical Exam: Mental Status: Patient confused, oriented only to self Neurological: Altered mental status noted Lab Results: Bilirubin: 1.1 (slightly elevated) Ammonia: 29 (normal) Toxicology screen: - Salicylates: Negative - Acetaminophen: Negative - Alcohol: Negative Imaging and Other Relevant Results: CT Head: No acute pathology Chest X-ray: No acute pathology Medical Decision Making: Summary Statement: 59-year-old male with history of seizure disorder presenting with acute encephalopathy, headache, and back pain requiring admission for further neurological evaluation. Problem List: 1. Acute encephalopathy 2. Upper lumbar back pain 3. Headache 4. Seizure disorder (chronic) Differential Diagnosis: 1. Metabolic encephalopathy 2. Post-ictal state 3. Medication effect 4. Infectious process 5. Intracranial process despite negative CT ED Course: Patient underwent comprehensive laboratory evaluation including liver function tests, ammonia level, and toxicology screening. Neuroimaging obtained. Given acute encephalopathy, decision made to admit for neurology consultation and further workup. Assessment and Plan: 1. Acute Encephalopathy: - Admit to hospital for further evaluation - Neurology consultation - Continue diagnostic workup - Monitor mental status 2. Upper Lumbar Back Pain: - Further evaluation needed in context of overall clinical picture - Consider relation to current mental status changes 3. Chronic Medical Conditions: - Continue home medications as appropriate - Review seizure history with neurology Billing Information: ICD-10: R41.0 - Acute confusion ICD-10: M54.16 - Radiculopathy, lumbar region ICD-10: R51.9 - Headache, unspecified Critical Care Note Critical Care Time?: No Stability Stability form required: No Heart Score Heart Score: Heart Score Response (Comments) Value History N/A 0 EKG N/A 0 Age N/A 0 Risk Factors N/A 0 Troponin N/A 0 Total 0 I personally scribed for JAREN BACON MD ([email or web address]) on 07/22/24 at 19:11. Electronically submitted by Maninder Fischer ([email or web address]). I personally scribed for JAREN BACON MD ([email or web address]) on 07/22/24 at 20:07. Electronically submitted by Maninder Fischer ([email or web address]). JAREN BACON MD Jul 22, 2024 19:11
[2024-07-22 19:23] LABS: Basophils # (auto) 0 10 ^3/uL (0-0.2); Basophils % (auto) 0.8 % (0.0-2.0); Eosinophils # (auto) 0 10 ^3/uL (0-0.8); Eosinophils % (auto) 0.6 % (0.0-7.0); Hematocrit 38.6 % (41.0-53.0); Hemoglobin 11.8 g/dL (13.5-17.5); Lymphocytes # (auto) 1.1 10 ^3/uL (0.4-5.4); Lymphocytes % (auto) 24.2 % (10.0-50.0); Mean Corpuscular Hgb Conc. 30.6 g/dL (32.0-36.0); Mean Corpuscular Volume 84.8 fL (80.0-100.0); Monocytes # (auto) 0.5 10 ^3/uL (0-1.3); Monocytes % (auto) 10.2 % (0.0-12.0); Neutrophils # (auto) 2.9 10 ^3/uL (1.6-8.6); Neutrophils % (auto) 64.2 % (37.0-80.0); Nucleated Red Blood Cells % 0.1 %; Platelet Count (auto) 137 10^3/uL (140-450); Red Blood Cells 4.56 10^6/uL (4.5-5.90); Red Cell Distribution Width 18.6 % (11.8-14.3); White Blood Cell 4.6 10^3/uL (4.4-10.8)
[2024-07-22 19:38] LABS: Alanine Aminotransferase 15 U/L (7-40); Albumin 4.3 g/dL (3.2-4.8); Anion Gap 11 (5-15); Aspartate Aminotransferase 21 U/L (13-40); BUN/Creatinine Ratio 11.6 (10.0-20.0); Bilirubin, Total 1.1 mg/dL (0.2-1.0); Blood Urea Nitrogen 10 mg/dL (9-23); Calcium 9.4 mg/dL (8.7-10.4); Carbon Dioxide 22 mmol/L (20-31); Chloride 105 mmol/L (98-107); Glucose 89 mg/dL (74-106); Magnesium 1.7 mg/dL (1.6-2.6); Potassium 3.5 mmol/L (3.5-5.1); Sodium 138 mmol/L (136-145); Total Protein 7.3 g/dL (5.7-8.2)
[2024-07-22 19:39] LABS: Acetaminophen < 2.0 UG/ML (10.0-20.0); Alkaline Phosphatase 126 U/L (46-116); Blood Alcohol < 3.0 mg/dL (<10); Salicylate < 3.0 mg/dL (-30)
--- NOTE | 2024-07-22 19:48 | DVH ---
EXAM: XY CHEST PORTABLE TECHNIQUE: Single frontal chest radiograph CLINICAL HISTORY: upper back pain COMPARISON: XY CHEST PORTABLE on DOS: 01/13/24 Findings/Impression: Frontal chest radiograph demonstrates no acute osseous or superficial soft tissue abnormalities. The trachea is midline. The cardiac silhouette and mediastinum are within normal limits. No pneumothorax, pleural effusions, or consolidations.
--- NOTE | 2024-07-22 19:55 | DVH ---
CT BRAIN WITHOUT CONTRAST HISTORY: ALOC TECHNIQUE: Axial scans were obtained from the skull base through the vertex without contrast. Sagitta l and coronal reformats were generated. One or more of the following radiation dose reduction techniq ues were used for this examination: automated exposure control, adjustment of the mA and/or kV accord ing to patient size, use of iterative reconstruction technique. COMPARISON: CT HEAD WITHOUT CONTRAST on DOS: 03/15/24 FINDINGS: Mild generalized cerebral and cerebellar atrophy again noted. No acute intracranial hemorrhage or ev idence of large vessel territorial infarction identified at this time. No midline shift. The basilar cisterns are patent. Small amount of layering fluid versus cyst in the posterior left maxillary sinus. Chronic appearing o pacification of the left inner ear and left mastoid air cells. No grossly displaced calvarial abnorma lities identified. IMPRESSION: No acute intracranial findings. A few other chronic appearing Findings as above.
[2024-07-22] MEDS ORDERED: LORazepam 2MG/ML-1ML VIAL IV PRN (21:45)
[2024-07-22] MEDS ORDERED: ONDANSETRON HCL 4 MG/2 ML VIAL IV PRN (21:45)
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
[2024-07-22 22:41] LABS: INR 1.09 (0.9-1.15); Prothrombin Time 11.5 sec (9.3-11.8)
[2024-07-23] MEDS: SODIUM CHLORIDE 0.9% 1,000 ML IV ONE (01:15)
[2024-07-23] MEDS: levETIRAcetam 1000 mg/100ml 100 ML IV ONE (01:16)
[2024-07-23] MEDS: THIAMINE 100mg/ml INJ (200mg/2ml VIAL) IV ONE (03:03)
[2024-07-23 03:24] VITALS: BP 96/56; PULSE 71; RESP 15; TEMP 98.7; O2SAT 93
--- NOTE | 2024-07-23 05:13 | DVH ---
EXAM: XR Left Foot Complete, 3 or More Views CLINICAL INDICATION: pain on weight bearing TECHNIQUE: Frontal, lateral and oblique views of the left foot. COMPARISON: None FINDINGS: BONES/JOINTS: See below. SOFT TISSUES: Soft tissue swelling without acute fracture. No radiopaque foreign body. OTHER FINDINGS: . IMPRESSION: 1. Soft tissue swelling without acute fracture. 2. If symptoms persist, further evaluation with CT is recommended.
[2024-07-23 06:37] LABS: Hemoglobin 11.1 g/dL (13.5-17.5); White Blood Cell 3.7 10^3/uL (4.4-10.8)
[2024-07-23 06:38] LABS: Hematocrit 33.3 % (41.0-53.0); Mean Corpuscular Hemoglobin 25.9 pg (28.0-32.0); Mean Corpuscular Hgb Conc. 33.2 g/dL (32.0-36.0); Mean Corpuscular Volume 78.1 fL (80.0-100.0); Platelet Count (auto) 147 10^3/uL (140-450); Red Blood Cells 4.27 10^6/uL (4.5-5.90); Red Cell Distribution Width 17.7 % (11.8-14.3)
[2024-07-23 06:50] LABS: Alanine Aminotransferase 11 U/L (7-40); Albumin 3.8 g/dL (3.2-4.8); Alkaline Phosphatase 115 U/L (46-116); Anion Gap 12 (5-15); Aspartate Aminotransferase 24 U/L (13-40); BUN/Creatinine Ratio 10.7 (10.0-20.0); Calcium 9.2 mg/dL (8.7-10.4); Carbon Dioxide 22 mmol/L (20-31); Sodium 142 mmol/L (136-145); Total Protein 6.4 g/dL (5.7-8.2)
[2024-07-23 06:51] LABS: Band Neutrophils % (manual) 0; Basophils % (manual) 0 (0.0-2.0); Bilirubin, Total 1.2 mg/dL (0.2-1.0); Blast Cells 0; Eosinophils % (manual) 0 (0-7); Metamyelocytes % 0; Myelocytes % 0; Promyelocytes % 0; Reactive Lymphocytes 0
[2024-07-23 06:59] LABS: Blood Urea Nitrogen 9 mg/dL (9-23); Chloride 108 mmol/L (98-107); Glucose 107 mg/dL (74-106); Potassium 3.5 mmol/L (3.5-5.1)
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
[2024-07-23 09:18] LABS: Lymphocytes % (manual) 53 (10.0-50.0); Monocytes % (manual) 15 (0-12); Platelet Estimate Adequate
[2024-07-23] MEDS: levETIRAcetam 500 mg/100ml 100 ML IV SCH (10:09)
[2024-07-23] MEDS: ENOXAPARIN SOD 40 MG/0.4 ML SYRINGE SC SCH (10:11)
[2024-07-23] MEDS: PANTOPRAZOLE 40 MG/10 ML VIAL INJ IV SCH (10:11)
[2024-07-23] MEDS: THIAMINE 100mg/ml INJ (200mg/2ml VIAL) IV SCH (10:12)
[2024-07-23 10:36] LABS: Folate (Folic Acid) 16.34 ng/mL (>5.38)
[2024-07-23 10:54] LABS: Urine Bacteria None Seen /hpf (None Seen)
[2024-07-23 10:54] LABS: COVID19 ANTIGEN SOFIA FIA NEGATIVE (NEGATIVE); Rapid Influenza A Negative (Negative); Rapid Influenza B Negative (Negative)
[2024-07-23 11:04] LABS: Urine Blood Negative /uL (Negative); Urine Clarity Clear (Clear); Urine Color Light-Yellow (Yellow); Urine Protein, UAD Negative (Negative); Urine Specific Gravity 1.007 (1.001-1.035); Urine Squamous Epithelial Cell FEW /hpf (<5); Urine Urobilinogen Normal (Negative); Urine WBC < 1 /HPF (0-3)
[2024-07-23 11:17] LABS: Amphetamine Screen, Urine Neg (NEGATIVE); Barbiturate Scree,Urine Neg (NEGATIVE); Benzodiazephine Screen, Urine Neg (NEGATIVE); Cannabinoid Screen, Urine Neg (NEGATIVE); Cocaine Screen, Urine Neg (NEGATIVE); Opiate Scree,Urine Neg (NEGATIVE); Phencyclidine Screen, Urine Neg (NEGATIVE)
--- NOTE | 2024-07-23 12:05 | DVH ---
CT LS SPINE WO CONTRAST INDICATION: LBP : 59 old Male LBP EXAM DATE: 07/23/2024 10:46 AM COMPARISON: None RADIATION DOSE: CTDIvol: 13.25 mGy, DLP: 454.37 mGy*cm PROCEDURE: Utilizing the CT scanner, contiguous axial scans were obtained through the lumbar spine. C oronal and sagittal reformatted images were then generated. All CT scans at this medical facility are performed using dose modulation techniques as appropriate t o a performed exam including the following: Automated exposure control was utilized; adjustment of th e MA and/or KV according to patient size; and use of iterative reconstruction technique. FINDINGS: There are 5 lumbar segments. The lumbar vertebral body heights and alignment are maintained . The intervertebral disc spaces are preserved. The cortical margins are intact. The paraspinal soft tissues are normal. On axial images: At T12-L1, the posterior disc margin, thecal sac, neural foramina, and facet joints are normal. At L1-2, the posterior disc margin, thecal sac, neural foramina, and facet joints are normal. At L2-3, the posterior disc margin, thecal sac, neural foramina, and facet joints are normal. At L3-4, the posterior disc margin, thecal sac, neural foramina, and facet joints are normal. At L4-5, the posterior disc margin, thecal sac, neural foramina, and facet joints are normal. At L5-S1, the posterior disc margin, thecal sac, neural foramina, and facet joints are normal. IMPRESSION: Normal CT findings of the lumbar spine.
--- NOTE | 2024-07-23 12:11 | DVH ---
CLINICAL INDICATION: 59 years old, Male; severe foot pain. TECHNIQUE: Noncontrast CT of the left foot was performed. Sagittal and coronal reformatted images are provided. COMPARISON: Radiograph of the left foot performed on 07/22/2024. CT Dose: CTDI volume is 7.75 mGy. Dose-length product is 214.82 mGy*cm FINDINGS: No fracture or dislocation. Hallux valgus. No cortical destruction. Soft tissues are unrem arkable. IMPRESSION: 1. No acute osseous abnormality in the left foot. All CT scans at this medical facility are performed using dose modulation techniques as appropriate t o a performed exam including the following: Automated exposure control was utilized; adjustment of th e MA and/or KV according to patient size; and use of iterative reconstruction technique.
[2024-07-23 15:05] VITALS: BP 126/71; PULSE 95; RESP 18; TEMP 97.8; O2SAT 95
[2024-07-23 15:28] VITALS: PULSE 95; RESP 18; O2SAT 95
[2024-07-23 16:54] VITALS: BP 116/65; PULSE 75; RESP 18; TEMP 98.2; O2SAT 95
[2024-07-23 20:00] VITALS: PULSE 95
[2024-07-23 20:58] VITALS: BP 103/57; PULSE 82; RESP 18; TEMP 97.8; O2SAT 94
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
[2024-07-23] MEDS ORDERED: levETIRAcetam 500 mg/100ml 100 ML IV ONE (22:31)
[2024-07-24] VITALS (9 sets, daily range): BP systolic 98–120; BP diastolic 57–66; PULSE 18–77; RESP 17–18; TEMP 97.7–98.2; O2SAT 94–97
[2024-07-24 08:15] LABS: Basophils # (auto) 0 10 ^3/uL (0-0.2); Basophils % (auto) 0.2 % (0.0-2.0); Eosinophils # (auto) 0.2 10 ^3/uL (0-0.8); Eosinophils % (auto) 3.5 % (0.0-7.0); Hematocrit 34.3 % (41.0-53.0); Hemoglobin 11.4 g/dL (13.5-17.5); Lymphocytes # (auto) 2.1 10 ^3/uL (0.4-5.4); Lymphocytes % (auto) 47.4 % (10.0-50.0); Mean Corpuscular Hemoglobin 26.2 pg (28.0-32.0); Mean Corpuscular Hgb Conc. 33.2 g/dL (32.0-36.0); Monocytes # (auto) 0.6 10 ^3/uL (0-1.3); Monocytes % (auto) 12.8 % (0.0-12.0); Neutrophils # (auto) 1.6 10 ^3/uL (1.6-8.6); Neutrophils % (auto) 36.1 % (37.0-80.0); Platelet Count (auto) 145 10^3/uL (140-450); Red Blood Cells 4.34 10^6/uL (4.5-5.90); White Blood Cell 4.5 10^3/uL (4.4-10.8)
[2024-07-24 08:44] LABS: Potassium 3.8 mmol/L (3.5-5.1); Sodium 142 mmol/L (136-145)
[2024-07-24 08:45] LABS: Anion Gap 11 (5-15); Calcium 9.1 mg/dL (8.7-10.4); Carbon Dioxide 21 mmol/L (20-31)
[2024-07-24 08:50] LABS: Blood Urea Nitrogen 13 mg/dL (9-23)
[2024-07-24 08:55] LABS: Chloride 110 mmol/L (98-107); Glucose 107 mg/dL (74-106)
[2024-07-24] MEDS: THIAMINE INJ 500 MG in D5W 5% 50 ML IV SCH (15:27)
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
[2024-07-25 05:00] VITALS: BP 92/70; PULSE 72; RESP 18; TEMP 98.3; O2SAT 97
[2024-07-25 08:00] VITALS: PULSE 63; PULSE 65; RESP 18; O2SAT 98
[2024-07-25 09:00] VITALS: BP 106/70; PULSE 63; RESP 18; TEMP 98.2; O2SAT 98
[2024-07-25 13:00] VITALS: BP 106/61; PULSE 63; RESP 16; TEMP 98.4; O2SAT 98
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
[2024-07-25] MEDS ORDERED: KEP500T PO (14:09)
[2024-07-25] MEDS ORDERED: THIA100T10 GT (14:12)
[2024-07-25 16:08] VITALS: BP 106/61; PULSE 63; RESP 16; TEMP 36.9; O2SAT 98
[2024-07-25] MEDS ORDERED: THIA100T10 PO (16:42)
[2024-07-27] MEDS ORDERED: THIAMINE INJ 250 MG in D5W 5% 50 ML IV SCH (10:00)
== END 2024-07-25 21:45 | disposition home or self-care (01) | DRG 53 ==
LOC: ER 18:38 → OVERFLOW 21:31 → TELE-CENTR 07-23 15:18
PROVIDERS: ADMIT Student in an Organized Health Care Education/Training Program; ATTEND Student in an Organized Health Care Education/Training Program
DX: G40.909 Epilepsy, unspecified, not intractable, without status epilepticus (principal); G92.8 Other toxic encephalopathy; D69.6 Thrombocytopenia, unspecified; F04 Amnestic disorder due to known physiological condition; M54.16 Radiculopathy, lumbar region; G89.29 Other chronic pain; F17.210 Nicotine dependence, cigarettes, uncomplicated; D72.819 Decreased white blood cell count, unspecified; Z20.822 Contact with and (suspected) exposure to COVID-19; T14.90XA Injury, unspecified, initial encounter; Z91.199 Patient's noncompliance with other medical treatment and regimen due to unspecified reason; Z79.2 Long term (current) use of antibiotics; X58.XXXA Exposure to other specified factors, initial encounter; Y93.89 Activity, other specified; Y92.89 Other specified places as the place of occurrence of the external cause; Y99.8 Other external cause status; Y90.0 Blood alcohol level of less than 20 mg/100 ml
CPT/HCPCS: 36415; 70450; 71045; 72131; 73620; 73700; 80048; 80053; 80307; 80320; 80329; 81001; 82140; 82306; 82607; 82746; 83605; 83735; 83880; 84443; 85007; 85025; 85027; 85610; 87040; 87426; 87804; 92610; 97110; 97116; 97163; 97530; G0378; J2470; J7060

== ENCOUNTER 2024-08-23 08:26 | Inpatient (IN) | payer MEDICAID ==
[~2024-08-23] VITALS: Ht 172.7 cm; Wt 64.0 kg
[~2024-08-23 08:26] MED LIST changes: -ACET500T58 PO; -AMOX875T4 PO; -AUG875T PO; -CIPR1SUS8 LEFT EAR; -COROSUS EACH EAR; +KEP500T PO; +THIA100T10 PO
[2024-08-23 08:44] VITALS: PULSE 75; RESP 23; O2SAT 94
--- NOTE | 2024-08-23 08:44 | ED.PDOC ---
HPI (NEURO) HPI Comments 59 y/o M with PMhx of seizures and UTI's, BIBA, presents to the ED for CC of s/p seizure. EMS reports, patient is coming from home where he had a witnessed 45 second tonic clonic seizure by family. Upon arrival to scene, patient was found to be postictal. In route to ED, patient was given 5mg IM of Versed. Family endorses, patient takes Keppra for seizures however, are unaware if patient is compliant at this time. Patient denies head injury, oral injury, or incontinence. No other symptoms or modifying factors present at this time. Chief Complaint: Seizure Time Seen by MD: 08:40 Primary Care Provider: RENEEO Reviewed Notes: Nurses Notes, Medications, Allergies Information Source: Patient Mode of Arrival: EMS Severity: Moderate Headache Severity: None Timing: Minutes Duration: Since onset Prehospital treatment: Other (Versed) Seizure Quality: Tonic-clonic Seizure Location: Generalized Onset: At rest Circumstances: Spontaneous Symptoms: None During: Awake After: Confusion History of: Seizure Disorder Modifying factors: Nothing Past Medical History PAST MEDICAL HISTORY: Seizures, UTI'S Surgical History: Unknown Family History Family History: Unknown Social History Smoker: Non-Smoker Alcohol: Heavy Drugs: Denies Drug Use Lives In: Home Constitutional: denies: chills, diaphoresis, fatigue, fever, malaise, sweats, weakness, others EENTM: denies: blurred vision, double vision, ear bleeding, ear discharge, ear drainage, ear pain, ear ringing, eye pain, eye redness, hearing loss, mouth pain, mouth swelling, nasal discharge, nose bleeding, nose congestion, nose pain, photophobia, tearing, throat pain, throat swelling, voice changes, others Respiratory: denies: cough, hemoptysis, orthopnea, SOB at rest, shortness of breath, SOB with excertion, stridor, wheezing, others Cardiovascular: denies: chest pain, dizzy spells, diaphoresis, Dyspnea on exertion, edema, irregular heart beat, left arm pain, lightheadedness, palpitations, PND, syncope, others Gastrointestinal: denies: abdomen distended, abdominal pain, blood streaked bowels, constipated, diarrhea, dysphagia, difficulty swallowing, hematemesis, melena, nausea, poor appetite, poor fluid intake, rectal bleeding, rectal pain, vomiting, others Genitourinary: denies: burning, dysuria, flank pain, frequency, hematuria, incontinence, penile discharge, penile sore, pain, testicle pain, testicle swelling, urgency, others Neurological: reports: seizure; denies: dizziness, fainting, headache, left sided numbness, left sided weakness, numbness, paresthesia, pre-existing deficit, right sided numbness, right sided weakness, speech problems, tingling, tremors, weakness, others Musculoskeletal: denies: back pain, gout, joint pain, joint swelling, muscle pain, muscle stiffness, neck pain, others Integumetry: denies: bruises, change in color, change in hair/nails, dryness, laceration, lesions, lumps, rash, wounds, others Allergic/Immunocompromised: denies: Difficulty Healing, Frequent Infections, Hives, Itching, others Hematologic/Lymphatic: denies: anemia, blood clots, easy bleeding, easy bruising, swollen glands, others Endocrine: denies: excessive hunger, excessive sweating, excessive thirst, excessive urination, flushing, intolerance to cold, intolerance to heat, un explained weight gain, unexplained weight loss, others Psychiatric: denies: anxiety, bipolar disorder, depression, hopeless, panic disorder, schizophrenia, sleepless, suicidal, others All Other Systems: Reviewed and Negative Physical Exam General Appearance: Moderate Distress HEENT: Normal ENT Inspection, Pharynx Normal, TMs Normal Neck: Full Range of Motion, Non-Tender, Normal, Normal Inspection Respiratory: Chest Non-Tender, Lungs Clear, No Accessory Muscle Use, No Respiratory Distress, Normal Breath Sounds Cardiovascular: No Edema, No JVD, No Murmur, No Gallop, Normal Peripheral Pulses, Regular Rate/Rhythm Breast Exam: Deferred Gastrointestinal: No Organomegaly, Non Tender, No Pulsatile Mass, Normal Bowel Sounds, Soft Genitalia: Deferred Pelvic: Deferred Rectal: Deferred Extremities: Other (Right upper extremity twitching ) Musculoskeletal : Apperance: Normal Neurologic: Disoriented, Other (Facial twitching) Cerebellar Function: NOT DONE Reflexes: NOT DONE Skin: Pallor Lymphatic: No Adenopathy Was a procedure done? Was a procedure done?: No Differential Diagnosis (SZ) Seizure: Psychogenic Seizure, Closed Head Injury, CVA/TIA, Epilepsy-Break Through, Epilepsy-Status X-Ray, Labs, Meds, VS Vital Signs Date Time Temp Pulse Resp B/P (MAP) Pulse Ox O2 Delivery O2 Flow Rate FiO2 08/23/24 08:46 98.2 81 20 119/76 (90) 95 98.2 Lab Test 08/23/24 09:00 08/23/24 08:32 Range/Units White Blood Count 5.7 4.4-10.8 10^3/uL Red Blood Count 4.51 4.5-5.90 10^6/uL Hemoglobin 11.6 L 13.5-17.5 g/dL Hematocrit 36.0 L 41.0-53.0 % Mean Corpuscular Volume 79.8 L 80.0-100.0 fL Mean Corpuscular Hemoglobin 25.7 L 28.0-32.0 pg Mean Corpuscular Hemoglobin Concent 32.1 32.0-36.0 g/dL Red Cell Distribution Width 18.3 H 11.8-14.3 % Platelet Count 140 140-450 10^3/uL Mean Platelet Volume 8.3 6.9-10.8 fL Neutrophils (%) (Auto) 52.2 37.0-80.0 % Lymphocytes (%) (Auto) 33.4 10.0-50.0 % Monocytes (%) (Auto) 11.8 0.0-12.0 % Eosinophils (%) (Auto) 1.7 0.0-7.0 % Basophils (%) (Auto) 0.9 0.0-2.0 % Neutrophils # (Auto) 3.0 1.6-8.6 10 ^3/uL Lymphocytes # (Auto) 1.9 0.4-5.4 10 ^3/uL Monocytes # (Auto) 0.7 0-1.3 10 ^3/uL Eosinophils # (Auto) 0.1 0-0.8 10 ^3/uL Basophils # (Auto) 0 0-0.2 10 ^3/uL Nucleated Red Blood Cells 0.1 % Sodium Level 144 136-145 mmol/L Potassium Level 3.6 3.5-5.1 mmol/L Chloride Level 112 H 98-107 mmol/L Carbon Dioxide Level 22 20-31 mmol/L Anion Gap 10 5-15 Blood Urea Nitrogen 8 L 9-23 mg/dL Creatinine 0.80 0.700-1.30 mg/dL Glomerular Filtration Rate Calc 101 >90 mL/min BUN/Creatinine Ratio 10.0 10.0-20.0 Serum Glucose 122 H 74-106 mg/dL Calcium Level 9.5 8.7-10.4 mg/dL Troponin I High Sensitivity < 3 L </=54 ng/L Urine Color Light-yellow Yellow Urine Clarity Clear Clear Urine pH 7.5 5.0-9.0 Urine Specific [place] 1.015 1.001-1.035 Urine Protein Negative Negative Urine Ketones Negative Negative Urine Blood Negative Negative /uL Urine Nitrite Negative Negative Urine Bilirubin Negative Negative Urine Urobilinogen Normal Negative mg/dL Urine Leukocyte Esterase Negative Negative /uL Urine RBC 4 0 - 3 /hpf Urine Microscopic WBC 1 0-3 /HPF Urine Squamous Epithelial Cells None seen <5 /hpf Urine Bacteria None seen None Seen /hpf Urine Glucose Normal Normal mg/dL Current Medications Medications (Trade) Dose Ordered Sig/Sean Route Start Time Stop Time Status Last Admin Sodium Chloride 1,000 ml @ 1,000 mls/hr Q1H ONCE IV 08/23/24 08:45 08/23/24 09:44 DC 08/23/24 08:53 Lorazepam (Ativan Inj) 1 mg ONCE ONCE IV 08/23/24 08:45 08/23/24 08:46 DC 08/23/24 08:52 Levetiracetam 100 ml @ 400 mls/hr ONCE ONCE IV 08/23/24 08:45 08/23/24 08:59 DC 08/23/24 08:52 [place] [id number] Ph: [phone] DIAGNOSTIC IMAGING Diagnostic Imaging Report : [id number] Signed PATIENT: DARRIUS GARDUNO ACCT: [id number] UNIT: [id number] : 1965 LOC: ER ROOM / BED: / AGE / SEX: 59 / M ADM STATUS: REG ER SERVICE [id number] ORDERING PHYSICIAN: DEBBIE ILU MD PROCEDURE(s): CXRP - CHEST PORTABLE REASON: sob ORDER NUMBER(s): [id number], ACCESSION NUMBER(s): [id number] CHEST RADIOGRAPH Indication: sob Technique: Single frontal view of the chest was obtained Comparison: XY CHEST PORTABLE on DOS: 07/22/24, XY CHEST PORTABLE on DOS: 01/13/24 FINDINGS: Lines and Tubes: None Lungs: Bilateral interstitial prominence. Pleura: No effusion. No pneumothorax. Cardiomediastinal contours: Unremarkable Bones: Unremarkable IMPRESSION: 1. Mild pulmonary venous congestion. ATED BY: SHEEBA TOSCANO MD DICTATED DATE/TIME: 08/23/24906 SIGNED BY: SHEEBA TOSCANO MD SIGNED DATE/TIME: 08/23/24906 CC: Patient disoriented. Postictal. History of seizure. Vitals stable. Was given Ativan. Establish intravenous access. Was given fluids. Was given Keppra. CT of the head was not done due to his chronic history. No trauma. Continue to monitor. Time of 1ST Reevaluation: 09:20 Reevaluation 1ST: Unchanged Patient Education/Counseling: Diagnosis, Treatment Family Education/Counseling: No Family Present Departure 1 Departure Time of Disposition: 09:07 Impression: Primary Impression: Metabolic encephalopathy Disposition: ADMITTED INPATIENT Admit to: Med Surg Condition: Guarded Critical Care Note Critical Care Time?: No Stability Stability form required: No Heart Score Heart Score: Heart Score Response (Comments) Value History Slightly Suspicious 0 EKG Normal 0 Age 45-64 1 Risk Factors >3 or Hx ASHD 2 Troponin Normal limit 0 Total 3 I personally scribed for DEBBIE LIU MD ([email or web address]) on 08/23/24 at 08:44. Electronically submitted by Ladan Cheng [email or web address]). I personally scribed for DEBBIE LIU MD ([email or web address]) on 08/23/24 at 08:50. Electronically submitted by Ladan Cheng ([email or web address]). I personally scribed for DEBBIE LIU MD ([email or web address]) on 08/23/24 at 08:53. Electronically submitted by Ladan Cheng ([email or web address]). I personally scribed for DEBBIE LIU MD ([email or web address]) on 08/23/24 at 10:02. Electronically submitted by Ladan Cheng ([email or web address]). I personally scribed for DEBBIE LIU MD ([email or web address]) on 08/23/24 at 10:03. Electronically submitted by Ladan Cheng [email or web address]). DEBBIE LIU MD August 23, 2024 08:44
[2024-08-23] MEDS: LORazepam 2MG/ML-1ML VIAL IV ONE (08:52)
[2024-08-23] MEDS: levETIRAcetam 1000 mg/100ml 100 ML IV ONE (08:52)
[2024-08-23] MEDS: SODIUM CHLORIDE 0.9% 1,000 ML IV ONE (08:53)
--- NOTE | 2024-08-23 09:09 | DVH ---
CHEST RADIOGRAPH Indication: sob Technique: Single frontal view of the chest was obtained Comparison: XY CHEST PORTABLE on DOS: 07/22/24, XY CHEST PORTABLE on DOS: 01/13/24 FINDINGS: Lines and Tubes: None Lungs: Bilateral interstitial prominence. Pleura: No effusion. No pneumothorax. Cardiomediastinal contours: Unremarkable Bones: Unremarkable IMPRESSION: 1. Mild pulmonary venous congestion.
[2024-08-23 09:13] LABS: Basophils # (auto) 0 10 ^3/uL (0-0.2); Basophils % (auto) 0.9 % (0.0-2.0); Eosinophils # (auto) 0.1 10 ^3/uL (0-0.8); Eosinophils % (auto) 1.7 % (0.0-7.0); Hemoglobin 11.6 g/dL (13.5-17.5); Lymphocytes # (auto) 1.9 10 ^3/uL (0.4-5.4); Lymphocytes % (auto) 33.4 % (10.0-50.0); Mean Corpuscular Hemoglobin 25.7 pg (28.0-32.0); Mean Corpuscular Hgb Conc. 32.1 g/dL (32.0-36.0); Mean Corpuscular Volume 79.8 fL (80.0-100.0); Monocytes # (auto) 0.7 10 ^3/uL (0-1.3); Monocytes % (auto) 11.8 % (0.0-12.0); Neutrophils % (auto) 52.2 % (37.0-80.0); Nucleated Red Blood Cells % 0.1 %; Platelet Count (auto) 140 10^3/uL (140-450); Red Blood Cells 4.51 10^6/uL (4.5-5.90); Red Cell Distribution Width 18.3 % (11.8-14.3); White Blood Cell 5.7 10^3/uL (4.4-10.8)
[2024-08-23 09:21] LABS: Potassium 3.6 mmol/L (3.5-5.1); Sodium 144 mmol/L (136-145)
[2024-08-23 09:22] LABS: Anion Gap 10 (5-15); Calcium 9.5 mg/dL (8.7-10.4); Carbon Dioxide 22 mmol/L (20-31); Chloride 112 mmol/L (98-107)
[2024-08-23 09:25] LABS: Urine Bacteria None Seen /hpf (None Seen)
[2024-08-23 09:28] LABS: Blood Urea Nitrogen 8 mg/dL (9-23); Glucose 122 mg/dL (74-106)
[2024-08-23 09:39] LABS: Urine Blood Negative /uL (Negative); Urine Clarity Clear (Clear); Urine Color Light-Yellow (Yellow); Urine Protein, UAD Negative (Negative); Urine Specific Gravity 1.015 (1.001-1.035); Urine Squamous Epithelial Cell None Seen /hpf (<5); Urine Urobilinogen Normal (Negative); Urine WBC 1 /HPF (0-3); Urine pH 7.5 (5.0-9.0)
[2024-08-23] MEDS ORDERED: ONDANSETRON HCL 4 MG/2 ML VIAL IV PRN (15:30)
[2024-08-23] MEDS ORDERED: NITROGLYCERIN 0.4 MG SL TAB SL PRN (15:30)
[2024-08-23] MEDS ORDERED: MORPHINE SULFATE INJ 2 MG/ml SYRG IV PRN (15:30)
--- NOTE | 2024-08-23 15:34 | DVHHP2 ---
History of Present Illness Reason for Visit: Seizure History of Present Illness Marino Aleman is a 59-year-old male with past medical history of UTI, seizure, and alcohol withdrawal who presents to the ED with seizure. Per reports from EMS the friend stated that they witnessed a seizure. Upon examination patient is just uttering words. Unable to obtain further information. ADVERTISING AGENCY MANAGER: Seizure Renal/: UTI Past Medical History ETOH abuse Smoke: <1 pack per day ALCOHOL: heavy Review of Systems Neurological: Seizures Allergies: Coded Allergies: NO KNOWN ALLERGIES (Unverified , 03/19/24) Medications Current Medications Medications Dose Ordered Sig/Sean Route Start Time Stop Time Status Last Admin Dose Admin Sodium Chloride 1,000 ml @ 120 mls/hr Q8H20M IV 08/23/24 15:30 UNV Ondansetron HCl 4 mg Q4HP PRN IV 08/23/24 15:30 UNV Enoxaparin Sodium 40 mg DAILY SC 08/24/24 10:00 UNV Acetaminophen 650 mg Q6HP PRN PO 08/23/24 15:30 UNV Nitroglycerin 0.4 mg Q5MINP PRN SL 08/23/24 15:30 UNV Morphine Sulfate 2 mg Q30M PRN IV 08/23/24 15:30 UNV Exam Vital Signs Vital Signs Date Time Temp Pulse Resp B/P (MAP) Pulse Ox O2 Delivery O2 Flow Rate FiO2 08/23/24 12:00 82 17 118/74 (89) 95 08/23/24 08:46 98.2 98.2 08/23/24 08:44 Room Air* 0 21 HEENT: Mucous membr. moist/pink Respiratory: Clear to auscultation, Normal air movement Cardiovascular: Regular rate, Normal S1, Normal S2 Abdominal: Normal bowel sounds, Soft Labs/Xrays Labs Test 08/23/24 09:00 08/23/24 08:32 Range/Units White Blood Count 5.7 4.4-10.8 10^3/uL Red Blood Count 4.51 4.5-5.90 10^6/uL Hemoglobin 11.6 L 13.5-17.5 g/dL Hematocrit 36.0 L 41.0-53.0 % Mean Corpuscular Volume 79.8 L 80.0-100.0 fL Mean Corpuscular Hemoglobin 25.7 L 28.0-32.0 pg Mean Corpuscular Hemoglobin Concent 32.1 32.0-36.0 g/dL Red Cell Distribution Width 18.3 H 11.8-14.3 % Platelet Count 140 140-450 10^3/uL Mean Platelet Volume 8.3 6.9-10.8 fL Neutrophils (%) (Auto) 52.2 37.0-80.0 % Lymphocytes (%) (Auto) 33.4 10.0-50.0 % Monocytes (%) (Auto) 11.8 0.0-12.0 % Eosinophils (%) (Auto) 1.7 0.0-7.0 % Basophils (%) (Auto) 0.9 0.0-2.0 % Neutrophils # (Auto) 3.0 1.6-8.6 10 ^3/uL Lymphocytes # (Auto) 1.9 0.4-5.4 10 ^3/uL Monocytes # (Auto) 0.7 0-1.3 10 ^3/uL Eosinophils # (Auto) 0.1 0-0.8 10 ^3/uL Basophils # (Auto) 0 0-0.2 10 ^3/uL Nucleated Red Blood Cells 0.1 % Sodium Level 144 136-145 mmol/L Potassium Level 3.6 3.5-5.1 mmol/L Chloride Level 112 H 98-107 mmol/L Carbon Dioxide Level 22 20-31 mmol/L Anion Gap 10 5-15 Blood Urea Nitrogen 8 L 9-23 mg/dL Creatinine 0.80 0.700-1.30 mg/dL Glomerular Filtration Rate Calc 101 >90 mL/min BUN/Creatinine Ratio 10.0 10.0-20.0 Serum Glucose 122 H 74-106 mg/dL Calcium Level 9.5 8.7-10.4 mg/dL Troponin I High Sensitivity < 3 L </=54 ng/L Urine Color Light-yellow Yellow Urine Clarity Clear Clear Urine pH 7.5 5.0-9.0 Urine Specific [place] 1.015 1.001-1.035 Urine Protein Negative Negative Urine Ketones Negative Negative Urine Blood Negative Negative /uL Urine Nitrite Negative Negative Urine Bilirubin Negative Negative Urine Urobilinogen Normal Negative mg/dL Urine Leukocyte Esterase Negative Negative /uL Urine RBC 4 0 - 3 /hpf Urine Microscopic WBC 1 0-3 /HPF Urine Squamous Epithelial Cells None seen <5 /hpf Urine Bacteria None seen None Seen /hpf Urine Glucose Normal Normal mg/dL CHEST RADIOGRAPH Indication: sob Technique: Single frontal view of the chest was obtained Comparison: XY CHEST PORTABLE on DOS: 07/22/24, XY CHEST PORTABLE on DOS: 01/13/24 FINDINGS: Lines and Tubes: None Lungs: Bilateral interstitial prominence. Pleura: No effusion. No pneumothorax. Cardiomediastinal contours: Unremarkable Bones: Unremarkable IMPRESSION: 1. Mild pulmonary venous congestion. 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 DVT prophylaxis-Lovenox PUD prophylaxis-H2 blockers Discussed plan of care with nurse Neuro consult Plan discussed with: Other My Orders Orders - NAYANA PRICE DENTOFACIAL ORTHOPEDICS DENTIST Procedure Category Date Status Time * Neurology Consult CONS 08/23/24 Transmitted 15:25 Admit ADMIT 08/23/24 Transmitted 15:25 Allergies [facility] 08/23/24 In Process 15:25 Code Status CODE 08/23/24 Transmitted 15:25 Sodium Chloride 0.9% PHA 08/23/24 Logged 15:30 Ondansetron Hcl PHA 08/23/24 Logged (Zofran) 15:30 Enoxaparin Sodium PHA 08/24/24 Logged (Lovenox) 10:00 Complete Blood Count LAB 08/24/24 Verified 04:00 Comprehensive LAB 08/24/24 Verified Metabolic Panel 04:00 Npo (Nothing By DIET 08/23/24 Transmitted Mouth) Diet Dinner Acetaminophen Tablet PHA 08/23/24 Logged (Tylenol Tablet) 15:30 Nitroglycerin PHA 08/23/24 Logged Sublingual (Ntrostat 15:30 Morphine Sulfate PHA 08/23/24 Logged Injection 15:30 Stat Ekg For Chest [facility] 08/23/24 In Process Pain 15:25 Notify Of Changes [facility] 08/23/24 In Process From Base 15:25 Cafeteria Associate For [facility] 08/23/24 In Process 24 Hours 15:25 Emergency Dysrhythmia [facility] 08/23/24 In Process Protocol 15:25 Rhythm Strips Once JOEL 08/23/24 In Process Every Shift 15:25 Oxygen By Nasal RT 08/23/24 Transmitted Cannula 15:[address] 08/23/24 Logged 15:25 Date of Service: August 23, 2024 Billing Provider: NAYANA PRICE Common Visit Codes: [id number] INP/OBS CARE (HIGH) NAYANA PRICE August 23, 2024 15:34
--- NOTE | 2024-08-23 16:02 | DVH ---
EXAM: CT HEAD WITHOUT CONTRAST INDICATION: aloc TECHNIQUE: CT of the head without intravenous contrast. Radiation Dose : 1. Head: CT Dose: CTDI volume is 57.18 mGy. Dose-length product is 1012.4 mGy*cm The dose indicators for CT are the volume Computed Tomography (CT) Dose Index (CTDIvol) and the Dose Length Product (DLP), and are measured in units of mGy and mGy-cm, respectively. These indicators are not patient dose, but values generated from the CT scanner acquisition factors. The report includes radiation exposure data for exposures received during this examination. COMPARISON: CT HEAD WITHOUT CONTRAST on DOS: 07/22/24, CT HEAD WITHOUT CONTRAST on DOS: 03/15/24, CT H EAD WITHOUT CONTRAST on DOS: 01/13/24 FINDINGS: There is no evidence of acute intracranial hemorrhage, extra-axial collection, mass effect, midline s hift, herniation or hydrocephalus. The ventricles, sulci and cisterns are age appropriate. The suggs-white differentiation is intact. Patchy periventricular and subcortical white matter hypoattenuation is nonspecific but may be related to small vessel ischemic disease. The visualized paranasal sinuses and mastoid air cells are clear. The surrounding soft tissues and osseous structures are unremarkable. IMPRESSION: No acute intracranial abnormality. Radiation optimization: All CT scans at this facility use at least one of these dose optimization felipe hniques: automated exposure control mA and/or kV adjustment per patient size (includes targeted exam s where dose is matched to clinical indication) or iterative reconstruction.
[2024-08-23] MEDS ORDERED: THIA100T46 PO (16:10)
[2024-08-23] MEDS: SODIUM CHLORIDE 0.9% 1,000 ML IV SCH (16:26)
[2024-08-23] MEDS: ENOXAPARIN SOD 40 MG/0.4 ML SYRINGE SC SCH (16:27)
[2024-08-23 19:19] VITALS: PULSE 63; RESP 16; O2SAT 96
[2024-08-23] MEDS: levETIRAcetam 1000 mg/100ml 100 ML IV SCH (22:24)
[2024-08-24 06:21] LABS: Basophils # (auto) 0 10 ^3/uL (0-0.2); Eosinophils # (auto) 0.2 10 ^3/uL (0-0.8); Lymphocytes # (auto) 2.8 10 ^3/uL (0.4-5.4); Mean Corpuscular Hemoglobin 26.6 pg (28.0-32.0); Monocytes # (auto) 0.8 10 ^3/uL (0-1.3); Neutrophils # (auto) 1.8 10 ^3/uL (1.6-8.6); Nucleated Red Blood Cells % 0.1 %
[2024-08-24 06:25] LABS: Basophils % (auto) 0.8 % (0.0-2.0); Hematocrit 35.6 % (41.0-53.0); Hemoglobin 11.9 g/dL (13.5-17.5); Mean Corpuscular Hgb Conc. 33.4 g/dL (32.0-36.0); Mean Corpuscular Volume 79.4 fL (80.0-100.0); Monocytes % (auto) 14.4 % (0.0-12.0); Neutrophils % (auto) 31.8 % (37.0-80.0); Platelet Count (auto) 141 10^3/uL (140-450); Red Blood Cells 4.48 10^6/uL (4.5-5.90); Red Cell Distribution Width 18.5 % (11.8-14.3); White Blood Cell 5.6 10^3/uL (4.4-10.8)
[2024-08-24 06:43] LABS: Albumin 3.7 g/dL (3.2-4.8); Alkaline Phosphatase 96 U/L (46-116); Anion Gap 11 (5-15); Aspartate Aminotransferase 21 U/L (13-40); BUN/Creatinine Ratio 9.9 (10.0-20.0); Calcium 8.8 mg/dL (8.7-10.4); Glucose 94 mg/dL (74-106); Sodium 142 mmol/L (136-145); Total Protein 6.7 g/dL (5.7-8.2)
[2024-08-24 06:50] LABS: Carbon Dioxide 20 mmol/L (20-31); Chloride 111 mmol/L (98-107); Potassium 3.5 mmol/L (3.5-5.1)
[2024-08-24 06:51] LABS: Alanine Aminotransferase < 9 U/L (7-40); Bilirubin, Total 1.7 mg/dL (0.2-1.0); Blood Urea Nitrogen 8 mg/dL (9-23)
[2024-08-24 07:30] VITALS: PULSE 64; RESP 12; O2SAT 96
[2024-08-24] MEDS: THIAMINE HCL 100 MG TAB PO SCH (10:00)
[2024-08-24] MEDS: FAMOTIDINE (10MG/ML) 2ML VL IV SCH (10:15)
--- NOTE | 2024-08-24 12:16 | BSKYNEURO ---
[facility] Note # Demographics Consult Type: General Neurology Patient Location: Inpatient First Name: Marino Last Name: Ash Date of : 1965 Age: 59 Facility: [facility] Time of Initial Page (): 08/24/2024 11:15 Time of Return Call (): 08/24/2024 11:16 # HPI Chief Complaint: - seizure History: Interview completed with help of Language Line historic interpreter. 59-year-old male with a history of seizures and alcohol withdrawal who presented with seizure activity. Last night, a friend observed Mr. Aleman experiencing a generalized tonic-clonic event at home. He experienced another tonic-clonic event lasting 45 seconds. He was subsequently brought to the emergency department, where he was found to be post-ictal and not following commands. He was given 5 mg of Versed. At the time of this encounter, Mr. Aleman appears to have limited communication abilities. He is oriented to his name and can provide his date of , but he does not know his current location and cannot recall the events of yesterday. The medical team is attempting to contact family members to determine if this level of cognition represents his baseline status. He's supposed to be taking Keppra 500 mg twice daily. Unclear if he's compliant with it at home. He's now on Keppra 1000 mg twice daily prior to neurology consultation. Last Known Normal: - I have collected independent history specific to time last normal or last known well. We have collaborated with the provider and at this time, we have the most current timeline with the information that is available. - unknown # Scores Time of exam and NIHSS (): 08/24/2024 12:09 Level of Consciousness 1a: [0] = Alert; keenly responsive LOC Questions 1b: [2] = Answers neither correctly LOC Commands 1c: [1] = Performs one correctly Best Gaze 2: [0] = Normal Visual 3: [0] = No visual loss Facial Palsy 4: [0] = Normal symmetrical movements Motor Arm Left 5a: [0] = No drift Motor Arm Right 5b: [0] = No drift Motor Leg Left 6a: [0] = No drift Motor Leg Right 6b: [0] = No drift Limb Ataxia 7: [0] = Absent Sensory 8: [0] = Normal Best Language 9: [1] = Owbw-vh-gyalgbeb aphasia Dysarthria 10: [1] = Okrt-hy-cxieajxn dysarthria Extinction and Inattention 11: [0] = No abnormality NIHSS Total: 5 # Data Time Head CT personally read by me ([place] Time): 08/24/2024 12:[address]: - no bleed - per radiologist read # Assessment Impression: - Breakthrough seizures. Unclear if patient is compliant with his medications. Recommend reducing his Keppra back down to 500 mg twice daily and confirming with family if he's actually taking his medications. Patient is not following any commands right now. Recommend MRI Brain wwo contrast. # Plan Thrombolytic/Intervention: NOT IV Thrombolysis or IA Intervention candidate Intraarterial Exclusion: - clinical exam not consistent with presence of large vessel occlusion (LVO), can reconsider if LVO found on vascular imaging Thrombolytic/Intraarterial Exclusion: - IV thrombolytic and IA intervention considered but not recommended as this patient's symptoms are not clinically consistent with an assumed diagnosis of stroke Labs: - urine drug screen Imaging: (urgency: routine): - Recommend MRI brain wwo contrast Medication: - Resume home Keppra at 500 mg twice daily and confirm with family if he's compliant with his medications. If he's no then would just continue with Keppra 500 mg twice daily - Recommend thiamine supplements Other: - If patient has any neurological deterioration please call me back immediately - seizure precautions - Give 2 grams IV magnesium sulfate for serum magnesium <= 1.8, optimize other electrolytes - May consider brief course of Ativan as temporizing measure (1 mg BID x 2 days) if provoking factor such as infection, medication noncompliance, or metabolic abnormality is found - Avoid epileptogenic medications such as wellbutrin, cefepime, ultram, meg olones, and imipenum - Seizure precautions, including appropriate state law prohibiting driving, avoiding heights, tubs/swimming pools and standing over open flames Disposition: continue admission # Demographics First Name: Marino Last Name: Ash Facility: [facility] Yes LAMONT WEISS MD August 24, 2024 12:16
--- NOTE | 2024-08-24 12:49 | DVHPN2 ---
Reviewed: Care Plan, H&P, Labs, Medications, Previous Orders, Radiology Changes from previous H/P or p: No Changes General: Per HPI Objective Vitals Vital Signs Date Time Temp Pulse Resp B/P (MAP) Pulse Ox O2 Delivery O2 Flow Rate FiO2 08/24/24 12:01 72 08/24/24 10:42 14 107/69 (82) 99 08/24/24 07:30 98.2 98.2 08/24/24 07:30 Nasal Cannula* 2 28 Intake/Output Intake and Output 08/24/24 07:00 Intake Total 1340 ml Output Total 1925 ml Balance -585 ml Intake IV Total 1340 ml Output Urine Total 1925 ml General Appearance: Alert, Oriented X3 Medications Current Medications Medications Dose Ordered Sig/Sean Route Start Time Stop Time Status Last Admin Dose Admin Sodium Chloride 1,000 ml @ 120 mls/hr Q8H20M IV 08/23/24 15:30 08/23/24 23:56 120 MLS/HR Ondansetron HCl 4 mg Q4HP PRN IV 08/23/24 15:30 Enoxaparin Sodium 40 mg DAILY SC 08/23/24 16:21 08/24/24 10:15 40 MG Acetaminophen 650 mg Q6HP PRN PO 08/23/24 15:30 Nitroglycerin 0.4 mg Q5MINP PRN SL 08/23/24 15:30 Morphine Sulfate 2 mg Q30M PRN IV 08/23/24 15:30 Levetiracetam 100 ml @ 400 mls/hr BID IV 08/23/24 22:00 08/24/24 10:15 400 MLS/HR Famotidine 20 mg DAILY IV 08/24/24 10:00 08/24/24 10:15 20 MG Thiamine HCl 100 mg DAILY PO 08/24/24 10:00 Laboratory Results Laboratory Tests 08/24/24 05:52 Chemistry Test 08/24/24 05:52 Albumin 3.7 g/dL (3.2-4.8) Calcium Level 8.8 mg/dL (8.7-10.4) Total Protein 6.7 g/dL (5.7-8.2) LFT Test 08/24/24 05:52 Alanine Aminotransferase (ALT) < 9 U/L (7-40) Alkaline Phosphatase 96 U/L (46-116) Aspartate Amino Transferase (AST) 21 U/L (13-40) Total Bilirubin 1.7 mg/dL (0.2-1.0) H Urinalysis Test 08/23/24 08:32 Urine Color Light-yellow (Yellow) Urine Clarity Clear (Clear) Urine pH 7.5 (5.0-9.0) Urine Specific [place] 1.015 (1.001-1.035) Urine Protein Negative (Negative) Urine Ketones Negative (Negative) Urine Blood Negative /uL (Negative) Urine Nitrite Negative (Negative) Urine Bilirubin Negative (Negative) Urine Urobilinogen Normal mg/dL (Negative) Urine Leukocyte Esterase Negative /uL (Negative) Urine RBC 4 /hpf (0 - 3) Urine Microscopic WBC 1 /HPF (0-3) Urine Squamous Epithelial Cells None seen /hpf (<5) Urine Bacteria None seen /hpf (None Seen) Urine Glucose Normal mg/dL (Normal) Labs and/or images reviewed: Labs reviewed by me, Image(s) reviewed by me Assessment/Plan Assessment/Plan Seizure Pancytopenia History of UTIs History of alcohol use History of tobacco use History of alcohol use seizure disorder admitted to med/surg continue to monitor Plan discussed with: Patient Date of Service: August 24, 2024 Billing Provider: JENNIFER DECKER DO Common Visit Codes: [id number] INP/OBS CARE(HIGH) JENNIFER DECKER DO August 24, 2024 12:49
[2024-08-24 16:44] VITALS: BP 115/52; PULSE 65; RESP 18; TEMP 97.5; O2SAT 98
[2024-08-24 16:46] VITALS: BP 115/52; PULSE 65; RESP 18; TEMP 97.5; O2SAT 98
[2024-08-24 20:00] VITALS: PULSE 62
[2024-08-24 21:00] VITALS: BP 124/62; PULSE 57; RESP 17; TEMP 97.3; O2SAT 100
[2024-08-25] VITALS (7 sets, daily range): BP systolic 114–134; BP diastolic 61–75; PULSE 48–80; RESP 16–20; TEMP 97.6–99.4; O2SAT 94–98
[2024-08-26 04:42] VITALS: BP 127/78; PULSE 66; RESP 16; TEMP 99.2; O2SAT 98
[2024-08-26 08:00] VITALS: PULSE 49; PULSE 60; RESP 16; O2SAT 93
[2024-08-26 09:00] VITALS: BP 104/62; PULSE 60; RESP 16; TEMP 98.1; O2SAT 93
[2024-08-26] MEDS ORDERED: KEP500T PO (12:06)
--- NOTE | 2024-08-26 12:06 | DVHPN2 ---
Reviewed: Care Plan, H&P, Labs, Medications, Previous Orders Changes from previous H/P or p: No Changes Objective Vitals Vital Signs Date Time Temp Pulse Resp B/P (MAP) Pulse Ox O2 Delivery O2 Flow Rate FiO2 08/26/24 09:00 98.1 60 16 104/62 (76) 93 98.1 08/26/24 08:00 Room Air* 0 21 Intake/Output Intake and Output 08/26/24 07:00 Intake Total 1840 ml Output Total 3375 ml Balance -1535 ml Intake Oral 840 ml IV Total 1000 ml Output Urine Total 3375 ml General Appearance: Alert, Oriented X3 Medications Current Medications Medications Dose Ordered Sig/Sean Route Start Time Stop Time Status Last Admin Dose Admin Sodium Chloride 1,000 ml @ 120 mls/hr Q8H20M IV 08/23/24 15:30 08/26/24 09:30 120 MLS/HR Ondansetron HCl 4 mg Q4HP PRN IV 08/23/24 15:30 Enoxaparin Sodium 40 mg DAILY SC 08/23/24 16:21 08/26/24 09:31 40 MG Acetaminophen 650 mg Q6HP PRN PO 08/23/24 15:30 Nitroglycerin 0.4 mg Q5MINP PRN SL 08/23/24 15:30 Morphine Sulfate 2 mg Q30M PRN IV 08/23/24 15:30 Levetiracetam 100 ml @ 400 mls/hr BID IV 08/23/24 22:00 08/26/24 09:30 400 MLS/HR Famotidine 20 mg DAILY IV 08/24/24 10:00 08/26/24 09:31 20 MG Thiamine HCl 100 mg DAILY PO 08/24/24 10:00 08/26/24 09:31 100 MG Laboratory Results Laboratory Tests 08/24/24 05:52 Urinalysis Test 08/23/24 08:32 Urine Color Light-yellow (Yellow) Urine Clarity Clear (Clear) Urine pH 7.5 (5.0-9.0) Urine Specific [place] 1.015 (1.001-1.035) Urine Protein Negative (Negative) Urine Ketones Negative (Negative) Urine Blood Negative /uL (Negative) Urine Nitrite Negative (Negative) Urine Bilirubin Negative (Negative) Urine Urobilinogen Normal mg/dL (Negative) Urine Leukocyte Esterase Negative /uL (Negative) Urine RBC 4 /hpf (0 - 3) Urine Microscopic WBC 1 /HPF (0-3) Urine Squamous Epithelial Cells None seen /hpf (<5) Urine Bacteria None seen /hpf (None Seen) Urine Glucose Normal mg/dL (Normal) Labs and/or images reviewed: Labs reviewed by me, Image(s) reviewed by me Assessment/Plan Assessment/Plan Seizure Pancytopenia History of UTIs History of alcohol use History of tobacco use History of alcohol use seizure disorder admitted to med/surg continue to monitor Plan discussed with: Patient My Orders Orders - JENNIFER DECKER DO Procedure Category Date Status Time Pt Request For Service PT 08/25/24 Logged 12:12 Mechanical Soft Diet DIET 08/25/24 Transmitted Lunch Date of Service: August 25, 2024 Billing Provider: JENNIFER DECKER DO Common Visit Codes: [id number] INP/OBS CARE(HIGH) JENNIFER DECKER DO Aug 26, 2024 12:06
[2024-08-26] MEDS: ACETAMINOPHEN 325 MG TAB PO PRN (13:17)
[2024-08-26 13:25] VITALS: BP 104/62; PULSE 60; RESP 16; TEMP 98.1; O2SAT 95
--- NOTE | 2024-08-26 23:15 | DVHDS2 ---
Discharge Summary Date of Admission August 23, 2024 at 15:25 Date of Discharge: Aug 26, 2024 Labs/Diagnostic Data: Laboratory Results Test 08/24/24 05:52 08/23/24 09:00 08/23/24 08:32 White Blood Count 5.6 10^3/uL (4.4-10.8) Red Blood Count 4.48 10^6/uL (4.5-5.90) Hemoglobin 11.9 g/dL (13.5-17.5) Hematocrit 35.6 % (41.0-53.0) Mean Corpuscular Volume 79.4 fL (80.0-100.0) Mean Corpuscular Hemoglobin 26.6 pg (28.0-32.0) Mean Corpuscular Hemoglobin Concent 33.4 g/dL (32.0-36.0) Red Cell Distribution Width 18.5 % (11.8-14.3) Platelet Count 141 10^3/uL (140-450) Mean Platelet Volume 8.3 fL (6.9-10.8) Neutrophils (%) (Auto) 31.8 % (37.0-80.0) Lymphocytes (%) (Auto) 50.0 % (10.0-50.0) Monocytes (%) (Auto) 14.4 % (0.0-12.0) Eosinophils (%) (Auto) 3.0 % (0.0-7.0) Basophils (%) (Auto) 0.8 % (0.0-2.0) Neutrophils # (Auto) 1.8 10 ^3/uL (1.6-8.6) Lymphocytes # (Auto) 2.8 10 ^3/uL (0.4-5.4) Monocytes # (Auto) 0.8 10 ^3/uL (0-1.3) Eosinophils # (Auto) 0.2 10 ^3/uL (0-0.8) Basophils # (Auto) 0 10 ^3/uL (0-0.2) Nucleated Red Blood Cells 0.1 % Sodium Level 142 mmol/L (136-145) Potassium Level 3.5 mmol/L (3.5-5.1) Chloride Level 111 mmol/L (98-107) Carbon Dioxide Level 20 mmol/L (20-31) Anion Gap 11 (5-15) Blood Urea Nitrogen 8 mg/dL (9-23) Creatinine 0.81 mg/dL (0.700-1.30) Glomerular Filtration Rate Calc 101 mL/min (>90) BUN/Creatinine Ratio 9.9 (10.0-20.0) Serum Glucose 94 mg/dL (74-106) Calcium Level 8.8 mg/dL (8.7-10.4) Total Bilirubin 1.7 mg/dL (0.2-1.0) Aspartate Amino Transferase (AST) 21 U/L (13-40) Alanine Aminotransferase (ALT) < 9 U/L (7-40) Alkaline Phosphatase 96 U/L (46-116) Total Protein 6.7 g/dL (5.7-8.2) Albumin 3.7 g/dL (3.2-4.8) Troponin I High Sensitivity < 3 ng/L (</=54) Urine Color Light-yellow (Yellow) Urine Clarity Clear (Clear) Urine pH 7.5 (5.0-9.0) Urine Specific [place] 1.015 (1.001-1.035) Urine Protein Negative (Negative) Urine Ketones Negative (Negative) Urine Blood Negative /uL (Negative) Urine Nitrite Negative (Negative) Urine Bilirubin Negative (Negative) Urine Urobilinogen Normal mg/dL (Negative) Urine Leukocyte Esterase Negative /uL (Negative) Urine RBC 4 /hpf (0 - 3) Urine Microscopic WBC 1 /HPF (0-3) Urine Squamous Epithelial Cells None seen /hpf (<5) Urine Bacteria None seen /hpf (None Seen) Urine Glucose Normal mg/dL (Normal) Other Laboratory Tests 08/24/24 05:52 Brief Hx & Hospital Course: Seizure Pancytopenia History of UTIs History of alcohol use History of tobacco use History of alcohol use seizure disorder no seizure for at least 24-48 hours i discussed with pt pt agreed for discharge. discharged to home with increased dosing of meds Condition at Discharge: Fair Final Diagnosis/Problems List Seizures Discharge Disposition: Home Discharge Instruct/Medications Diet: Cardiac 2g Na,low cholest Activity: No Restrictions, As Tolerated Discharge Statement: "Patient was advised to return to the ER or call 911 if any headaches, dizziness, shortness of breath, chest pain, abdominal pain, bleeding, fevers, or worsening of medical condition. Patient was counseled about treatment plan, medications, possible side effects, patientverbalized understanding. All questions were answered to the best of my ability. This discharge took greater then 30 minutes in planning, reviewing documentation, counseling the patient, and discussing with other team members." ASSESSMENT ASSESSMENT Assessment Seizures Date of Service: Aug 26, 2024 Billing Provider: JENNIFER DECKER DO Common Visit Codes: [id number]/OBS DISCH DAY >30min JENNIFER DECKER DO Aug 26, 2024 23:15
--- NOTE | 2024-08-29 13:20 | DVHSR ---
APPROVED REPORT EXAM: Two-dimensional and M-mode echocardiogram with Doppler and color Doppler. Blood Pressure: 122/61 mmHg INDICATION ALOC RISK FACTORS Height: 5' 8", Weight: 138 DIMENSIONS LVDd4.3 (3.8-5.7cm)LA (2D)3.5 (1.9-4.0cm)Aortic Root3.3 (2.0-3.7cm) LVDs2.8 (2.5-4.0cm)LA (MM) (1.9-4.0cm)Aortic Cusp Exc1.5 (1.5-2.0cm) EF (%) 60.0 (55-70%)Rt. Atrium3.7 (1.9-4.0cm)Asc. Aorta cm IVSd0.9 (0.7-1.1cm)RV (D) (1.8-2.4cm) PWd0.8 (0.7-1.1cm) Mitral Valve MitralMitral Stenosis E wave0.60m/sMV Mean GR.mmHg A wave1.00m/sMV Peak GR.mmHg E/A ratio0.62D MVAcm2 Aortic Valve Aortic ValveAortic Stenosis V11.30m/Taryn Mean GR.3mmHg V21.30m/Taryn Peak GR.7mmHg LVOT Diameter2.1 (1.8-2.4cm)Doppler AVA3.46cm2 Tricuspid Valve TR Velocity2.10m/s [id number] Conclusion Technically good study. Sinus rhythm. Left atrial enlargement with mild aortic root enlargement. Valves are normal. EF of 60% with normal RV function. Dopplers unremarkable. No pericardial effusion masses or vegetations.
== END 2024-08-26 13:57 | disposition home or self-care (01) | DRG 53 ==
LOC: EDBD 08:26 → ER 08:26 → EDUNIT# 08:26 → OVERFLOW 15:25 → TELE-WESTW 08-24 15:21
PROVIDERS: ADMIT Internal Medicine; ATTEND Internal Medicine
DX: G40.409 Other generalized epilepsy and epileptic syndromes, not intractable, without status epilepticus (principal); D61.818 Other pancytopenia; Z87.440 Personal history of urinary (tract) infections; Z87.891 Personal history of nicotine dependence; Z79.899 Other long term (current) drug therapy
CPT/HCPCS: 36415; 70450; 71045; 80048; 80053; 81001; 84484; 85025; 93306; 96365; 96375; 97163; G0378; J3490